=== PATIENT | male | born 1945 | race Caucasian/White ===

== ENCOUNTER 2016-12-18 09:09 | Inpatient (IN) ==
[~2016-12-18 09:09] MED LIST: TYLENOL ONE
[2016-12-18] MEDS ORDERED: LEVAQUIN 500 MG/D5W 500 MG/100 ML IVPB ONE ×2 (09:30)
[2016-12-18] MEDS ORDERED: NS 1,000 ML ONE ×6 (09:39→10:48)
[2016-12-18] MEDS ORDERED: LEVAQUIN 250 MG/D5W 250 MG/50 ML IVPB ONE (12:25)
[2016-12-18] MEDS ORDERED: VANCOMYCIN 1 GM/NS 1 GM/250 ML IVPB ONE (13:50)
[2016-12-18] MEDS: DUONEB (A & A) INH SCH ×3 (15:00→23:06)
[2016-12-18] MEDS ORDERED: NEO-SYNEPHRINE 50 MG in NS 250 ML IV SCH (15:00)
[2016-12-18] MEDS ORDERED: DUONEB (A & A) INH PRN (15:53)
[2016-12-18] MEDS ORDERED: ZOFRAN IV PRN (16:43)
[2016-12-18] MEDS: TYLENOL PO PRN (17:03)
[2016-12-18] MEDS: NEURONTIN PO SCH ×2 (17:03→22:30)
[2016-12-18] MEDS: ROBAXIN PO SCH ×2 (17:04→22:30)
[2016-12-18] MEDS: PROTONIX IV SCH (17:04)
[2016-12-18] MEDS: NORCO-7.5 PO SCH ×2 (17:04→22:30)
[2016-12-18] MEDS: NS 1,000 ML IV SCH (17:11)
[2016-12-18 17:35] LABS: URINE SOURCE CATH
[2016-12-18 17:37] LABS: MANUAL DIFF NEEDED? NO
--- NOTE | 2016-12-18 17:41 | Diag Imaging Result Document ---
PROCEDURE NAME: CHEST-2 VIEWS - 12/18/2016 PA AND LATERAL CHEST: COMPARISON: There are no previous studies available for comparison. FINDINGS: There is pleural thickening and/or loculated effusion on the right. There is increased interstitial and alveolar opacity in the right lower lobe and upper lobe. The heart size and pulmonary vascularity appear to be within normal limits. IMPRESSION: Chronic pleural changes on the right. Apparent pneumonia in the right upper and lower lobes. The chronicity is unclear without comparison studies.
[2016-12-18] MEDS: SODIUM CHLORIDE 0.9% INJ SCH (18:06)
[2016-12-18 18:50] LABS: CK INDEX 2.4 (0.0-2.5); CK-MB 9.32 ng/mL (0.0-5.0)
[2016-12-18 18:52] LABS: INR 1.43 (0.86-1.15); PROTIME 17.7 Seconds (12.1-15.5); PTT PL 30.3 Seconds (22.6-43.9)
[2016-12-18 18:55] LABS: HEMATOCRIT 30.6 % (42.0-52.0); HEMOGLOBIN 10.4 g/dL (14.0-18.0); MCH 35.6 PG (27-31); MCV 104.8 FL (81-99); PLT 80 X1000 (130-400); RBC 2.92 XMIL (4.7-6.1)
[2016-12-18 18:56] LABS: BASO% 0.1 % (0.0-0.8); IMM GRAN% 0.3 % (0.0-0.5); LYMPH# 1.57 X1000 (1.2-3.4); MONO# 0.26 X1000 (0.11-0.59); MONO% 2.2 % (1.7-9.3); NEUT% 84.4 % (42.2-75.2)
[2016-12-18 18:57] LABS: IMM GRAN# 0.04 X1000 (0.0-0.04); LYMPHS 15 % (21-51); MANUAL DIFF NEEDED? YES; MONO 1 % (1-9)
[2016-12-18 18:58] LABS: CHLORIDE 93 mmol/L (98-107); POTASSIUM 4.3 mmol/L (3.5-5.1); SODIUM 132 mmol/L (136-145)
[2016-12-18 18:59] LABS: AGAP 12; BUN 34 mg/dL (8-22); COSMO 272; TCO2 27 mmol/L (25-35)
[2016-12-18 19:00] LABS: ALBUMIN 3.7 g/dL (3.5-5.0); ALKALINE PHOSPHATASE 46 U/L (32-122); CALCIUM 8.9 mg/dL (8.8-10.2); TOTAL PROTEIN 7.2 g/dL (6.3-8.3)
[2016-12-18 19:01] LABS: GOT 40 U/L (10-34); GPT 21 U/L (10-44)
[2016-12-18 19:02] LABS: POTASSIUM 3.8 mmol/L (3.5-5.1); SODIUM 130 mmol/L (136-145)
[2016-12-18 19:03] LABS: AGAP 10; BUN 31 mg/dL (8-22); CHLORIDE 96 mmol/L (98-107); COSMO 269; TCO2 24 mmol/L (25-35)
[2016-12-18 19:04] LABS: ALBUMIN 3.3 g/dL (3.5-5.0); ALKALINE PHOSPHATASE 41 U/L (32-122); CALCIUM 8.2 mg/dL (8.8-10.2); GOT 37 U/L (10-34); GPT 20 U/L (10-44); MAGNESIUM 1.9 mg/dL (1.5-2.7); TOTAL PROTEIN 6.3 g/dL (6.3-8.3)
[2016-12-18 19:05] LABS: HEMATOCRIT 28.9 % (42.0-52.0); HEMOGLOBIN 9.8 g/dL (14.0-18.0); MCH 35.8 PG (27-31); MCV 105.5 FL (81-99); RBC 2.74 XMIL (4.7-6.1)
[2016-12-18 19:06] LABS: BASO% 0.1 % (0.0-0.8); IMM GRAN# 0.06 X1000 (0.0-0.04); IMM GRAN% 0.5 % (0.0-0.5); LYMPH# 1.04 X1000 (1.2-3.4); LYMPH% 8.5 % (20.5-51.1); MCHC 33.9 g/dL (33-37); MONO# 0.14 X1000 (0.11-0.59); MONO% 1.1 % (1.7-9.3); NEUT% 89.8 % (42.2-75.2); PLT 60 X1000 (130-400)
[2016-12-18 19:07] LABS: URINE EPITHELIAL CELLS <10 /HPF (<10); URINE WBC <10 /HPF (<10)
[2016-12-18 19:07] LABS: BE 5.8 mmoll (-3.0-3.0); BLOOD TYPE ARTERIAL; DRAW SITE R RADIAL; METHB 0.9 % (0.0-1.5); PCO2(98.6) 40 mmHg (35-45); PO2(98.6) 56 mmHg (60-100); SAMPLE BLOOD; SAO2 92.2 % (95.0-100.0); THB 10.8 g/dL (11.5-17.4); pH(98.6) 7.48 (7.35-7.45)
[2016-12-18 19:08] LABS: BILIRUBIN URINE 1+ (NEGATIVE); BLOOD URINE 2+ (NEGATIVE); CLARITY CLEAR (CLEAR); COLOR AMBER; GLUCOSE URINE NEGATIVE (NEGATIVE); SP GRAVITY URINE 1.015
[2016-12-18 19:09] LABS: LEUKOCYTES URINE TRACE (NEGATIVE); NITRITE URINE NEGATIVE (NEGATIVE); PROTEIN URINE 1+(30 mg/dL) mg/dL (NEGATIVE); URINE CULTURE PL NEEDED? YES; UROBILINOGEN URINE 4+(12 mg/dL)
[2016-12-18 19:09] LABS: O2(CT) 13.5 mL/dL (15.0-23.0)
[2016-12-18 21:26] LABS: AGAP 13; BUN 29 mg/dL (8-22); CALCIUM 7.9 mg/dL (8.8-10.2); CHLORIDE 96 mmol/L (98-107); COSMO 270; POTASSIUM 3.8 mmol/L (3.5-5.1); SODIUM 130 mmol/L (136-145); TCO2 21 mmol/L (25-35)
[2016-12-19] MEDS: NS 1,000 ML IV SCH ×3 (00:30→18:51)
[2016-12-19] MEDS: DUONEB (A & A) INH SCH ×6 (03:03→22:55)
[2016-12-19 04:51] LABS: MANUAL DIFF NEEDED? NO
[2016-12-19] MEDS: TYLENOL PO PRN (05:00)
[2016-12-19 05:52] LABS: AGAP 10; ALKALINE PHOSPHATASE 42 U/L (32-122); BUN 24 mg/dL (8-22); CALCIUM 7.6 mg/dL (8.8-10.2); CHLORIDE 99 mmol/L (98-107); COSMO 269; GOT 28 U/L (10-34); GPT 19 U/L (10-44); MAGNESIUM 1.9 mg/dL (1.5-2.7); POTASSIUM 3.8 mmol/L (3.5-5.1); SODIUM 132 mmol/L (136-145); TCO2 23 mmol/L (25-35); TOTAL PROTEIN 5.1 g/dL (6.3-8.3)
[2016-12-19] MEDS: NEURONTIN PO SCH ×3 (06:31→22:59)
[2016-12-19] MEDS: ROBAXIN PO SCH ×3 (06:32→23:00)
[2016-12-19] MEDS: NORCO-7.5 PO SCH ×3 (06:32→23:00)
[2016-12-19 07:02] LABS: EOS% 0.1 % (0.0-10.0); HEMATOCRIT 24.4 % (42.0-52.0); HEMOGLOBIN 8.2 g/dL (14.0-18.0); IMM GRAN% 0.1 % (0.0-0.5); LYMPH% 13.3 % (20.5-51.1); MCH 35.2 PG (27-31); MCHC 33.6 g/dL (33-37); MCV 104.7 FL (81-99); MONO% 2.7 % (1.7-9.3); NEUT% 83.8 % (42.2-75.2); PLT 62 X1000 (130-400); RBC 2.33 XMIL (4.7-6.1)
[2016-12-19 07:03] LABS: EOS# 0.01 X1000 (0.0-0.7); IMM GRAN# 0.01 X1000 (0.0-0.04); LYMPH# 1.17 X1000 (1.2-3.4); MONO# 0.24 X1000 (0.11-0.59)
[2016-12-19] MEDS ORDERED: VANCOMYCIN IV PER PHARMACY MISC SCH (07:15)
[2016-12-19] MEDS ORDERED: VANCOMYCIN 1,850 MG in NS 500 ML IV ONE (08:30)
[2016-12-19] MEDS: MIRAPEX PO SCH (09:32)
[2016-12-19] MEDS: FLOMAX PO SCH (09:32)
[2016-12-19 10:12] LABS: OCCULT BLOOD 1 NEGATIVE (NEGATIVE)
[2016-12-19 11:55] LABS: HEMATOCRIT 26.8 % (42.0-52.0); HEMOGLOBIN 8.9 g/dL (14.0-18.0); MCHC 33.2 g/dL (33-37); MCV 105.5 FL (81-99); PLT 58 X1000 (130-400); RBC 2.54 XMIL (4.7-6.1)
--- NOTE | 2016-12-19 12:04 | PROGRESS NOTE ---
DATE: 12/19/2016 SUBJECTIVE: Patient feels tremendously better this morning. He still had a fever of 102.9 but otherwise notes that his shortness of breath, cough, and congestion are all much better. PHYSICAL EXAMINATION: Vital Signs: Temperature 98 degrees, T-max 102.9 degrees. Pulse 75, respiratory rate 15, BP 120/54. General: Patient is well developed, well nourished. He is currently in no respiratory distress. He is awake, alert, and he is oriented. Neck: Supple. CV: Regular rate. Chest: Relatively clear. Abdomen: Soft. Extremities: Moves all extremities. Neurologic: No focal changes. Skin: Warm and dry. No rashes. ASSESSMENT: 1. Sepsis, improving. 2. Fever. Patient continues to have fever. 3. Pneumonia. Continue Levaquin and vancomycin. 4. Leukocytosis, improved. 5. Anemia. Hemoglobin and hematocrit are 8 and 24. Likely of chronic disease as he has no current episodes of bleeding. However, we will continue to follow. 6. Hyponatremia, improving. 7. Acute renal failure, improving. Serum creatinine was 2.5 on admission, currently 1.6. 8. Hyperbilirubinemia, also improving. PLAN: We will continue the patient in the ICU this morning. Hopefully, can move out to the floor this afternoon. We will discontinue his Freire. We will begin changing his medications. Hopefully home in the next 2-3 days. cc: Yan Nunez MD
[2016-12-19 12:08] LABS: AGAP 9; BUN 20 mg/dL (8-22); CALCIUM 8.1 mg/dL (8.8-10.2); CHLORIDE 99 mmol/L (98-107); COSMO 266; POTASSIUM 3.4 mmol/L (3.5-5.1); SODIUM 131 mmol/L (136-145); TCO2 24 mmol/L (25-35)
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
[2016-12-19] MEDS: MOTRIN PO PRN (14:52)
[2016-12-19] MEDS: PROTONIX IV SCH (18:51)
[2016-12-19] MEDS: SODIUM CHLORIDE 0.9% INJ SCH (18:51)
[2016-12-19] MEDS: DESYREL PO SCH (23:00)
[2016-12-19] MEDS ORDERED: AYR NASAL SPRAY NAS PRN (23:18)
[2016-12-20] MEDS: NS 1,000 ML IV SCH ×2 (01:47→04:00)
[2016-12-20] MEDS: DUONEB (A & A) INH SCH ×6 (03:10→23:56)
[2016-12-20 05:39] LABS: HEMATOCRIT 23.5 % (42.0-52.0); HEMOGLOBIN 7.7 g/dL (14.0-18.0); RBC 2.25 XMIL (4.7-6.1)
[2016-12-20 05:40] LABS: MCH 31.2 PG (27-31); MCHC 32.8 g/dL (33-37); MCV 104.4 FL (81-99); PLT 60 X1000 (130-400)
[2016-12-20 06:09] LABS: AGAP 9; ALBUMIN 2.9 g/dL (3.5-5.0); ALKALINE PHOSPHATASE 45 U/L (32-122); BUN 20 mg/dL (8-22); CHLORIDE 104 mmol/L (98-107); COSMO 275; GOT 22 U/L (10-34); GPT 19 U/L (10-44); POTASSIUM 3.6 mmol/L (3.5-5.1); SODIUM 136 mmol/L (136-145); TCO2 23 mmol/L (25-35); TOTAL PROTEIN 5.1 g/dL (6.3-8.3)
[2016-12-20] MEDS: NEURONTIN PO SCH ×3 (06:35→23:00)
[2016-12-20] MEDS: NORCO-7.5 PO SCH (06:35)
[2016-12-20] MEDS: ROBAXIN PO SCH (06:36)
[2016-12-20] MEDS: MIRAPEX PO SCH (08:24)
[2016-12-20] MEDS: FLOMAX PO SCH (08:24)
[2016-12-20] MEDS ORDERED: NS 1,000 ML IV SCH (08:27)
--- NOTE | 2016-12-20 08:40 | PROGRESS NOTE ---
DATE: 12/20/2016 SUBJECTIVE: The patient notes that he is feeling much better today. He denies any cough, congestion. Denies any chest pain or palpitations. Denies any fevers or chills. PHYSICAL EXAMINATION: Vital Signs: Temperature 98, pulse 84, respiratory rate 10, blood pressure 143/48. General: Patient is awake, alert. He is in no distress. He is pleasant to talk with. Speech is regular. Neck: Supple. Cardiovascular: Regular rate. Chest: Relatively clear. Abdomen: Soft. Extremities: Moves all extremities. Neurologic: No changes. ASSESSMENT: 1. Gram-positive cocci bacteremia. 2. Sepsis, resolved. 3. Right upper lobe pneumonia, improving. 4. Acute hypoxic respiratory failure, resolved. 5. Acute renal failure, resolved. 6. Anemia of chronic disease, stable. 7. Leukocytosis, resolved. 8. Hyponatremia, resolved. 9. Hypocalcemia. 10. Mild protein calorie malnutrition. PLAN: We will transfer the patient to the floor. We will continue vancomycin and Levaquin until his blood cultures result. We will begin restarting his home medications. cc: Yan Nunez MD
[2016-12-20] MEDS ORDERED: MIRAPEX PO SCH (09:00)
[2016-12-20] MEDS ORDERED: ADVAIR 250/50 DISKUS INH SCH (09:00)
[2016-12-20] MEDS: PRILOSEC PO SCH (09:55)
[2016-12-20] MEDS ORDERED: LEVAQUIN 750 MG/D5W 750 MG/150 ML IVPB IV SCH (12:00)
[2016-12-20 13:02] LABS: BE 0.7 mmoll (-3.0-3.0); BLOOD TYPE ARTERIAL; METHB 1.2 % (0.0-1.5); O2(CT) 11.6 mL/dL (15.0-23.0); PCO2(98.6) 40 mmHg (35-45); PO2(98.6) 55 mmHg (60-100); SAMPLE BLOOD; THB 9.3 g/dL (11.5-17.4); pH(98.6) 7.41 (7.35-7.45)
[2016-12-20 13:12] LABS: MODALITY CANNULA
[2016-12-20 13:13] LABS: ALLEN TEST YES; DRAW SITE R RADIAL
[2016-12-20] MEDS ORDERED: NEURONTIN PO SCH (14:00)
[2016-12-20] MEDS ORDERED: MOTRIN ONE (14:26)
[2016-12-20] MEDS: MOTRIN PO PRN (14:28)
[2016-12-20] MEDS ORDERED: LASIX ONE (14:48)
[2016-12-20] MEDS ORDERED: LASIX IV ONE (14:55)
[2016-12-20] MEDS ORDERED: XOPENEX NEB INH ONE (14:58)
[2016-12-20] MEDS ORDERED: MORPHINE IV ONE (15:20)
--- NOTE | 2016-12-20 17:55 | Diag Imaging Result Document ---
PROCEDURE NAME: CHEST-1 VIEW - 12/20/2016 CHEST SINGLE-VIEW: COMPARISON: 12/18/2016. FINDINGS: There are infiltrates throughout the right lung which persist. There is also a small right effusion. Tiny left effusion. The heart is not enlarged. Mild vascular distention. IMPRESSION: Overall mild worsening.
--- NOTE | 2016-12-20 18:00 | Diag Imaging Result Document ---
PROCEDURE NAME: HEAD W/O CONTRAST - 12/20/2016 STUDY: CT brain without. COMPARISON: Compared to 09/17/2015. No parenchymal hemorrhage. No epidural or subdural hematoma. No subarachnoid hemorrhage. No mass identified on this noncontrast exam. No hydrocephalus. No sinus opacification. Mild atrophy. IMPRESSION: 1. No hemorrhage. 2. Mild atrophy.
[2016-12-20] MEDS ORDERED: VANCOMYCIN 1,500 MG in NS 250 ML IV SCH (20:30)
[2016-12-20] MEDS ORDERED: DESYREL PO SCH (21:00)
[2016-12-20] MEDS ORDERED: FLOMAX PO SCH (21:00)
[2016-12-20] MEDS: DESYREL PO SCH (21:06)
[2016-12-20] MEDS: SODIUM CHLORIDE 0.9% INJ SCH (23:55)
[2016-12-20] MEDS: SPIRIVA INH SCH (23:56)
[2016-12-21] MEDS: DUONEB (A & A) INH SCH ×6 (03:33→22:32)
[2016-12-21] MEDS: TYLENOL PO PRN ×2 (05:50→20:55)
[2016-12-21] MEDS: NEURONTIN PO SCH ×3 (06:00→22:07)
[2016-12-21] MEDS: PRILOSEC PO SCH (06:01)
[2016-12-21 06:39] LABS: AGAP 12; ALBUMIN 2.8 g/dL (3.5-5.0); ALKALINE PHOSPHATASE 59 U/L (32-122); BUN 16 mg/dL (8-22); CALCIUM 8.3 mg/dL (8.8-10.2); CHLORIDE 106 mmol/L (98-107); COSMO 287; GOT 23 U/L (10-34); GPT 22 U/L (10-44); POTASSIUM 3.3 mmol/L (3.5-5.1); SODIUM 143 mmol/L (136-145); TCO2 26 mmol/L (25-35); TOTAL PROTEIN 5.2 g/dL (6.3-8.3)
[2016-12-21 07:17] LABS: HEMATOCRIT 25.5 % (42.0-52.0); HEMOGLOBIN 8.6 g/dL (14.0-18.0); MCH 33.7 PG (27-31); MCHC 33.7 g/dL (33-37); PLT 69 X1000 (130-400); RBC 2.55 XMIL (4.7-6.1)
[2016-12-21] MEDS: SPIRIVA INH SCH (08:45)
[2016-12-21] MEDS: ADVAIR 250/50 DISKUS INH SCH ×2 (08:45→20:23)
--- NOTE | 2016-12-21 09:03 | PROGRESS NOTE ---
DATE: 12/21/2016 SUBJECTIVE: The patient notes that he is feeling much better this morning. He is awake, alert. OBJECTIVE: Vital Signs: Reviewed. Temperature 97 degrees, pulse 79, respiratory rate 12, BP 93/51. General: Patient well developed, well nourished. Currently in no real respiratory distress. He is awake, alert. Neck: Supple. CV: Regular rate. Chest: Relatively clear. Abdomen: Soft. Extremities: Moves all extremities. DIAGNOSTIC DATA: CBC and CMP essentially unchanged. Hemoglobin and hematocrit has remained 8 and 25 for the last couple of days. ASSESSMENT: 1. Sepsis, secondary to strep pneumoniae, improving. 2. Hypokalemia, resolved. 3. Moderate protein calorie malnutrition. 4. Anemia of chronic disease. 5. Chronic obstructive pulmonary disease with exacerbation. 6. Right upper and lower lobe pneumonia, improved secondary to history of pneumonia. 7. Acute renal failure, resolved. Serum creatinine 2.5 admit, currently 1.1. 8. Hyperbilirubinemia of undetermined significance. We will continue to follow. PLAN: We will transfer patient to the floor. His strep pneumoniae is highly sensitive to Levaquin, penicillin and doxycycline. We will ask Dr. Aguilar with infectious disease preferred length of antibiotics and preferred route. The patient denies any surgical implantation of hardware. Hopefully home in 1-2 days. cc: Yan Nunez MD
[2016-12-21] MEDS: FLOMAX PO SCH (10:16)
[2016-12-21] MEDS: FLONASE NAS SCH ×2 (10:17→20:55)
[2016-12-21] MEDS ORDERED: LACTULOSE PO ONE (11:19)
[2016-12-21] MEDS ORDERED: NS 500 ML ONE (12:23)
[2016-12-21] MEDS: ROCEPHIN 2 GM/NS 2 GM/50 ML IVPB IV SCH (12:33)
[2016-12-21] MEDS ORDERED: LEVAQUIN 750 MG/D5W 750 MG/150 ML IVPB IV SCH (14:00)
[2016-12-21] MEDS: NORCO-7.5 PO PRN (15:50)
[2016-12-21] MEDS ORDERED: ATIVAN IV PRN (20:36)
[2016-12-21] MEDS: DESYREL PO SCH (20:55)
[2016-12-22] MEDS: DUONEB (A & A) INH SCH ×5 (03:29→19:44)
[2016-12-22] MEDS: PRILOSEC PO SCH (06:20)
[2016-12-22] MEDS: NEURONTIN PO SCH ×3 (06:20→22:28)
[2016-12-22] MEDS: ADVAIR 250/50 DISKUS INH SCH ×2 (07:40→19:44)
[2016-12-22] MEDS: SPIRIVA INH SCH (07:40)
--- NOTE | 2016-12-22 08:00 | Diag Imaging Result Document ---
PROCEDURE NAME: ABDOMEN FLAT/UPRIGHT - 12/21/2016 FLAT AND UPRIGHT ABDOMEN: FINDINGS: There is a moderately large amount of stool throughout the colon. There is no evidence of gastric or small bowel dilatation and no evidence of organomegaly or mass is present. IMPRESSION: Constipation.
--- NOTE | 2016-12-22 08:05 | Diag Imaging Result Document ---
PROCEDURE NAME: CHEST-2 VIEWS - 12/21/2016 TWO VIEWS OF THE CHEST: FINDINGS: There are bilateral pleural effusions, some of which may be loculated on the right. There are right pleural calcifications. There is volume loss on the right and the entire right lung is somewhat hyperdense particularly the lower lobe. This has not changed appreciably since 12/20/2016 but is considerably worse than on 09/17/2015. The pleural changes on the right were present at that time and but there has been increased volume loss and generalized pulmonary parenchymal opacity since then. The pleural effusion on the left was not present at that time. There has been worsening with regard to the pulmonary opacities and left pleural effusion since 12/18/2016. IMPRESSION: Chronic pleural changes on the right with increasing pleural effusions bilaterally. Pulmonary edema and/or pneumonia throughout the right lung.
[2016-12-22] MEDS: FLONASE NAS SCH ×2 (08:10→21:42)
[2016-12-22] MEDS: LEVAQUIN PO SCH (08:23)
[2016-12-22] MEDS: FLOMAX PO SCH (08:23)
[2016-12-22] MEDS ORDERED: MIRALAX PO SCH (09:00)
[2016-12-22] MEDS: ROCEPHIN 2 GM/NS 2 GM/50 ML IVPB IV SCH (11:34)
[2016-12-22] MEDS: LACTULOSE PO SCH ×2 (11:35→22:07)
[2016-12-22] MEDS ORDERED: DULCOLAX PR SCH (12:00)
--- NOTE | 2016-12-22 12:32 | PROGRESS NOTE ---
DATE: 12/22/2016 SUBJECTIVE: The patient states he is feeling better today. He is awake and alert. He complains of needing to have a bowel movement. OBJECTIVE: Vital Signs: Blood pressure is 125/60 with a heart rate of 92, respirations are 18, temperature is 98.7 degrees oral with oxygen saturations of 95-98% on a Ventimask at 50%. Of note, O2 saturation did drop to 79% on room air. He was then placed on 5 L nasal cannula. Saturations have been 96-98%. Cardiovascular: Regular rate and rhythm. S1 and S2 appreciated. Pulmonary: Breath sounds are clear. Chest rises and falls symmetrically with respiration. No increased work of breathing noted. Gastrointestinal: Abdomen is soft, nontender with bowel sounds in all 4 quadrants. Musculoskeletal: Good range of motion of joints. Extremities: No clubbing, cyanosis, or edema. Calves are nontender. Pulses are palpable x4. DIAGNOSTIC DATA: Abdominal x-ray revealed constipation. Chest x-ray revealed pulmonary edema or pneumonia throughout the right lung. ASSESSMENT: 1. Sepsis secondary to strep pneumoniae pneumonia, improving. 2. Hypokalemia resolved. 3. Moderate protein calorie malnutrition. 4. Anemia of chronic disease. 5. Chronic obstructive pulmonary disease with exacerbation. 6. Right upper and right lower lobe pneumonia. 7. Acute renal failure. Improved with creatinine 1.1 today. 8. Hyperbilirubinemia of undetermined significance. PLAN: Will continue with the patient's current regimen. We did speak with Dr. Aguilar, Infectious Disease who recommended that the patient have antibiotic coverage of Rocephin 2 g every 24 hours. We will also continue with his Levaquin daily. We will increase his pulmonary toilet adding CPT incentive spirometer. We will continue to trend labs daily. We did give lactulose on the and we will repeat lactulose today adding Dulcolax suppositories. During the night the patient's O2 sats dropped to 75%. He was placed on a Ventimask during the night. This morning O2 sats were rechecked and his saturation did drop again once again to 78- 79%. Once he was placed on 5 L nasal cannula his sats did increase to 95-96%. We will continue with oxygen supplementation and increase pulmonary toilet as stated above. The patient has had a CPAP machine for quite some time. It was noted when he was in ICU his sats would drop when the CPAP was in use. We have called the company and requested they come and check his machine. Dictated by BENIGNO Trevino for Yan Nunez MD cc: BENIGNO Trevino MD
[2016-12-22] MEDS: TYLENOL PO PRN (13:28)
[2016-12-22] MEDS ORDERED: MISC. PHARMACY COMMUNICATION SCH (15:45)
[2016-12-22] MEDS: NON-FORMULARY BULK MED PR ONE (18:00)
[2016-12-22] MEDS: MAXIPIME 2 GM/NS 2 GM/100 ML IVPB IV SCH (19:53)
[2016-12-22] MEDS: NORCO-7.5 PO PRN (20:16)
[2016-12-22] MEDS: DESYREL PO SCH (21:41)
--- NOTE | 2016-12-22 22:46 | CONSULTATION ---
DATE OF CONSULTATION: 12/22/2016 CONCLUSION: The patient was admitted to the hospital with severe pneumonia that involves most of the right lung. His blood cultures are growing Streptococcus pneumoniae, therefore, certainly part of the patient's pneumonia if not all is due to Streptococcus pneumoniae. Patient says he does not feel like he is getting any better. It may just be that it is going to take longer because he has a history of COPD and because he has a large pneumonia. On the other hand it is noted that the patient's sputum is growing a gram-negative lorenzo and thus he may have actually a mixed infection with pneumococcus and the gram-negative lorenzo. In addition, the patient may have an immunoglobulin deficiency. RECOMMENDATIONS: I agree with treating the patient with Levaquin. I have discontinued Rocephin and placed the patient on cefepime to provide coverage both for the pneumococcus and whatever the gram-negative lorenzo in the patient's sputum turns out to be off. Also, I have ordered immunoglobulin levels and if the IgG is low I think the patient should have an infusion of gammaglobulin. DISCUSSION: The patient told me that for a week he has had dyspnea and cough. He is not really bringing up any sputum. He does not think he has had any fever. He has been in the hospital for approximately 4 days. He says he really does not feel any better and he is not breathing any better. LABORATORY STUDIES: Thus far his white count is 6300, hemoglobin is 8.6 and platelet count is 69,000. Creatinine is 1.1. GFR is greater than 60. A swab for influenza is negative. The patient's blood culture grew pneumococcus. His sputum is growing a gram-negative lorenzo. Chest x-ray shows an enlarging right lung infiltrate and also bilateral pleural effusions. CT scan of the head shows atrophy. CT scan of the sinuses shows no opacity. PAST MEDICAL HISTORY AND REVIEW OF SYSTEMS: Eyes and ears: He denies difficulty hearing or seeing. Neck: No stiffness. Respiratory: See present illness. Gastrointestinal: No nausea, vomiting, or diarrhea. Genitourinary: No dysuria or flank pain. Endocrine: Patient does not have diabetes or thyroid disease. Bones, joints, muscles: No joint pain or myalgias. Neurologic: No motor or sensory loss. No seizures. Integumentary: No rash. The remainder the patient's review of systems was completed and was negative. PREVIOUS HOSPITALIZATIONS AND OPERATIONS: He has had back surgery and surgery on his clavicle. MEDICAL DISEASES: Positive for COPD. INFECTIOUS DISEASE HISTORY: Positive for pneumonia. FAMILY HISTORY: Positive for stroke. SOCIAL HISTORY: [place] He is . He has a dog as a pet. He does not smoke cigarettes, drink alcoholic beverages or abuse drugs. ALLERGIES: His chart says there are no known drug allergies. HOME MEDICATIONS: MiraLAX, ProAir, omeprazole, gabapentin, Pramipexole, trazodone, Robaxin, Spiriva and hydrocodone. PHYSICAL EXAMINATION: Vital Signs: Temperature 99.2 degrees, pulse 84, respirations 22, blood pressure 111/56. The patient weighs 163 pounds. General: This is a somewhat ill-appearing, elderly male. He is in no acute distress. Head, eyes, ears, nose, and throat: He can hear my spoken words. He can see near objects. He is wearing dentures. Sinuses are not tender. There is no drainage from the nose or ears. Neck: No meningismus. Thorax: Increased AP diameter. Lungs: There were diminished breath sounds on the right side. I heard a few rales on the right side, the left side was clear. Cardiovascular: Heart rate was regular. There was leg edema. Peripheral pulses are palpable. Abdomen: Soft and nontender. Neurologic: Patient is alert. He can move his extremities. He had good strength in his arms and legs. His sensation was intact to touch. His memory as regarding his medical history is intact. There was no tremor. Integument: No rash noted. Thank you for the consultation. cc: Teddy Aguilar MD
[2016-12-23] MEDS: DUONEB (A & A) INH SCH ×5 (00:01→15:58)
[2016-12-23] MEDS: NORCO-7.5 PO PRN ×3 (05:52→22:01)
[2016-12-23] MEDS: MAXIPIME 2 GM/NS 2 GM/100 ML IVPB IV SCH (06:39)
[2016-12-23] MEDS: NEURONTIN PO SCH ×3 (06:39→22:01)
[2016-12-23] MEDS: PRILOSEC PO SCH (06:39)
[2016-12-23] MEDS: SPIRIVA INH SCH (08:13)
[2016-12-23] MEDS: ADVAIR 250/50 DISKUS INH SCH (08:13)
--- NOTE | 2016-12-23 08:17 | PROGRESS NOTE ---
DATE: 12/23/2016 SUBJECTIVE: The patient notes he is feeling a little bit better. He is a little bit stronger, but he still gets very short of breath coughing and dyspnea on exertion. PHYSICAL EXAM: Temperature 100, pulse 87, respiratory rate 18, BP 118/58. Saturating 94% on 4 L.General: The patient is awake, alert. He is sitting up in the chair. He is wearing a Ventimask watching television. Neck: Supple. CV: Regular rate. Chest: Decreased breath sounds but equal bilaterally. No wheezing. No crackles. Abdomen: Soft. Extremities: Moves all extremities. Neurologic: No changes. LABORATORY DATA: Sputum growing gram-negative rods. Blood culture growing strep pneumoniae. CBC, CMP unchanged otherwise. ASSESSMENT: 1. Moderate protein calorie malnutrition. 2. Mild hypokalemia. 3. Gram-negative rods in sputum and antibiotics have been changed. He has added cefepime 2 g q. 12. 4. Sepsis, improved. 5. Bacteremia with Strep pneumonia. Continue Levaquin. 6. Nasal congestion, we will add Flonase. 7. Hypoxemia. Continue pulmonary toilet. Continue to ambulate. Hopefully this will continued to improve. Addendum: Patient will be transferred to [facility] to the service of his Primary - Dr. May. Although the stated to Lalo that she has been asking, at no point, morning or night have I seen the and the has never asked. The staff has never told me that she was asking either. He is clinically slowly improving cc: Yan Nunez MD [facility] MED[facility] CENTERLibertad
[2016-12-23] MEDS: LEVAQUIN PO SCH (09:10)
[2016-12-23] MEDS: FLOMAX PO SCH (09:10)
[2016-12-23] MEDS: FLONASE NAS SCH (09:11)
[2016-12-23] MEDS ORDERED: BLISTEX MEDICATED BERRY LIP BALM TOP PRN ×2 (11:33→21:45)
[2016-12-23] MEDS ORDERED: TYLENOL PO PRN (21:39)
[2016-12-23] MEDS ORDERED: MOTRIN PO PRN (21:41)
[2016-12-23] MEDS ORDERED: ATIVAN IV PRN (21:49)
[2016-12-23] MEDS ORDERED: ROCEPHIN 2 GM/NS 2 GM/50 ML IVPB IV SCH (22:00)
[2016-12-23] MEDS ORDERED: DULCOLAX PR SCH (22:00)
[2016-12-23] MEDS: PROTONIX IV SCH (22:01)
[2016-12-23] MEDS: SOLU-MEDROL IV SCH (22:01)
[2016-12-23] MEDS: SODIUM CHLORIDE 0.9% INJ SCH (22:01)
[2016-12-23] MEDS: LOVENOX SUBQ SCH (22:01)
[2016-12-23] MEDS: DESYREL PO SCH (22:02)
[2016-12-24 04:12] LABS: ALLEN TEST YES; BLOOD TYPE ARTERIAL; DRAW SITE R RADIAL; METHB 1.4 % (0.0-1.5); O2(CT) 16.3 mL/dL (15.0-23.0); PO2(98.6) 86 mmHg (60-100); SAMPLE BLOOD; SAO2 97.2 % (95.0-100.0); THB 12.4 g/dL (11.5-17.4); pH(98.6) 7.38 (7.35-7.45)
[2016-12-24 04:14] LABS: MODALITY BI PAP; PCO2(98.6) 53 mmHg (35-45)
[2016-12-24 06:45] LABS: BASO% 0.3 % (0.0-0.8); HEMATOCRIT 26.9 % (42.0-52.0); HEMOGLOBIN 8.9 g/dL (14.0-18.0); LYMPH# 0.63 X1000 (1.2-3.4); LYMPH% 20.7 % (20.5-51.1); MANUAL DIFF NEEDED? YES; MCH 33.8 PG (27-31); MCHC 33.1 g/dL (33-37); MCV 102.3 FL (81-99); MONO# 0.04 X1000 (0.11-0.59); MONO% 1.3 % (1.7-9.3); MPV 11.9 FL (7.4-10.4); NEUT% 77.7 % (42.2-75.2); PLT 113 X1000 (130-400); RBC 2.63 XMIL (4.7-6.1)
[2016-12-24 06:54] LABS: AGAP 8; BUN 17 mg/dL (8-22); CALCIUM 8.4 mg/dL (8.8-10.2); CHLORIDE 98 mmol/L (98-107); COSMO 282; POTASSIUM 4.4 mmol/L (3.5-5.1); SODIUM 139 mmol/L (136-145); TCO2 33 mmol/L (25-35)
[2016-12-24 07:01] LABS: BANDS 6 % (0-1); LYMPHS 24 % (21-51); MONO 2 % (1-9)
[2016-12-24] MEDS ORDERED: ZOSYN 3.375 GM/NS 3.375 GM/50 ML IVPB IV SCH (08:15)
[2016-12-24] MEDS ORDERED: ATIVAN IV PRN (08:16)
[2016-12-24] MEDS ORDERED: LASIX IV SCH (08:30)
--- NOTE | 2016-12-24 08:47 | Diag Imaging Result Document ---
PROCEDURE NAME: CHEST-PORTABLE - 12/24/2016 SINGLE FRONTAL RADIOGRAPH OF THE CHEST: COMPARISON: 12/21/2016. FINDINGS: Bilateral effusions, largest on the right, are stable. Diffuse infiltrate throughout the right lung suggesting edema and/or pneumonia is [id number] improved, especially at the right lung base. No new consolidation is identified. Cardiac silhouette is stable. IMPRESSION: [id number] improved infiltrate throughout the right lung.
[2016-12-24] MEDS ORDERED: LEVAQUIN 500 MG/D5W 500 MG/100 ML IVPB IV SCH (09:00)
[2016-12-24] MEDS: SPIRIVA INH SCH (09:06)
[2016-12-24] MEDS: DUONEB (A & A) INH PRN ×3 (09:07→22:54)
[2016-12-24] MEDS: ADVAIR 250/50 DISKUS INH SCH ×2 (09:07→22:54)
[2016-12-24] MEDS: FLOMAX PO SCH (09:47)
[2016-12-24] MEDS: SOLU-MEDROL IV SCH ×2 (09:47→22:28)
[2016-12-24] MEDS: FLONASE NAS SCH ×2 (09:47→22:26)
[2016-12-24] MEDS: NORCO-7.5 PO PRN ×2 (10:00→22:32)
[2016-12-24] MEDS: NEURONTIN PO SCH ×2 (10:01→16:33)
--- NOTE | 2016-12-24 12:29 | PROGRESS NOTE ---
DATE: 12/24/2016 PRESENT ILLNESS: The patient has pneumonia. He had along with that a pneumococcal bacteremia. Undoubtedly, the pneumonia was caused by pneumococcus, as well. Despite being treated thoroughly for the pneumococcus, the patient was just not getting better, and a new organism, namely alcaligenes, was isolated from his sputum. MEDICATIONS: Currently, the patient is receiving Levaquin. PHYSICAL EXAMINATION: Vital signs; Temperature is 97.7, pulse 92, respirations 16, blood pressure 121/68. General: This is a somewhat ill-appearing elderly male who is in no acute distress. Lungs: Clear to auscultation. Cardiovascular: Regular heart rate. Abdomen: Soft without masses or tenderness. Neurologic: The patient is alert. He can move his extremities. LABORATORY AND X-RAY: Chest x-ray shows there is some improvement in the right lung infiltrate. The patient's CBC shows a white count of 3050, hemoglobin 8.9, and platelet count of 113,000. The patient's blood gases show a pH of 7.38, a pO2 of 86, and a pCO2 of 53. Creatinine is 1.0. GFR is greater than 60. The patient's IgA and IgG levels are normal. Specifically , the IgA level was 800. ASSESSMENT AND PLAN: The patient has pneumococcal bacteremia and pneumonia. Also, there appears to be another organism, namely alcaligenes, which is causing the patient's pneumonia, as well. I agree with placing the patient on Zosyn. I have increased the dose to 4.5 g IV q.6 h. I discontinued Levaquin. COMORBIDITIES: The patient's comorbidities are he has COPD, and he is elderly. cc: MD Juan Guerra MD MTDD
[2016-12-24] MEDS: ZOSYN 4.5 GM/NS 4.5 GM/100 ML IVPB IV SCH ×3 (15:28→22:27)
--- NOTE | 2016-12-24 18:48 | PROGRESS NOTE ---
DATE: 12/24/2016 SUBJECTIVE: He is a 71-year-old male patient of mine, who was admitted in the ICU at [facility] for pneumococcal sepsis with positive blood cultures and also gram-negative rods. The patient was treated appropriately there. At the request of the family, the patient has been transferred to [facility]. He was admitted on 12/18/2016. Date of transfer was on 12/23/2016. Patient was examined at bedside. Interval history was reviewed and he had a known history of COPD with right bronchiectasis. He was placed on IV Rocephin and Levaquin. He is also using BiPAP. Intermittent confusion. He also was found to have thrombocytopenia and anemia. Electrolytes were replaced. Currently he is stable on the floor. REVIEW OF SYSTEMS: HEENT: Intermittent confusion. No headache. No vision problem. Neck: No goiter. No lymphadenopathy. Cardiopulmonary: No chest pain. No shortness of breath, wheezing, productive cough. GI: No nausea, vomiting, abdominal pain. No altered bowel habits. No bleeding per rectum. : No history of hesitancy, frequency. No swelling of feet. Skin: Recently he was treated with right olecranon bursitis. Subsequently I and D was done. Neurologic: No focal symptoms or weakness or seizures. PAST MEDICAL HISTORY: Reviewed. BPH, COPD, gastroesophageal reflux disease, hypogonadism, anxiety/depression, chronic back pain and COPD with bronchiectasis. PAST SURGICAL HISTORY: Right foot repair, tonsillectomy, I and D of right elbow abscess. I did review the allergies, medications. Social history, family history as per the HPI from [place]. PHYSICAL EXAMINATION: Vital Signs: Afebrile, slightly tachycardic. Hemodynamics stable on 4 L oxygen 96%. Appearance: Not in respiratory distress. HEENT: Atraumatic, normocephalic. Pupils equal, react to light. TMs are normal. Nose and throat congested on nasal cannula. Neck: Supple. No lymphadenopathy. No goiter. Chest: Is wheezing, crackles on the right side. Heart: Sounds are regular. No murmurs. Abdomen: Belly is soft, nontender. Good bowel sounds. No peripheral edema or cyanosis. Neurological: No obvious deficits. INVESTIGATIONS: CBC: White cell count 6.3, hematocrit 25, MCV is 100. Platelets 69,000. PT 17. INR 1.4. ABG, pH is 7.41, pCO2 40, PO2 55. SMA 7: Sodium 143, potassium 3.3, chloride 106, BUN 16, creatinine 1.1, glucose 106, calcium 8.3, total bilirubin 1.6. LFTs were normal. IgG levels are normal. Influenza A and B were negative. Stool occult was negative. MICROBIOLOGY: Sputum cultures gram-negative rods pending, blood cultures are positive for strep pneumonia and urine was negative. Chest x-ray right lower lobe infiltrate. ASSESSMENT AND PLAN: 71-year-old white gentleman, admitted to the hospital with pneumococcal sepsis, getting better, transferred at the request of the family. 1. Continue IV antibiotics with Rocephin and Levaquin. 2. Sleep apnea on CPAP machine. 3. BPH, on Flomax. 4. DVT prophylaxis with Lovenox. 5. Gastrointestinal prophylaxis with IV Protonix. 6. COPD. Continue on bronchodilators and Spiriva. 7. We will add IV steroids and follow up on C and S. 8. Anemia, macrocytosis. Stool is negative. Discussed with the patient and his and currently stable. We will also ask Dr. Aguilar to be followed in the morning. Documentation time is 45 minutes. cc: Juan May MD
--- NOTE | 2016-12-24 18:59 | PROGRESS NOTE ---
DATE: 12/24/2016 SUBJECTIVE: Interval history reviewed. The patient was just coming off the BiPAP machine. Denies any complaints. Still has a productive cough and decreased shortness of breath and wheezing. REVIEW OF SYSTEMS: None reported. Acute mental confusion is improving. OBJECTIVE: Vital Signs: Temperature is 98 degrees, respirations 18, blood pressure 110/74, nasal cannula on oxygen. Input and output were positive 340. HEENT: Not in respiratory distress. Neck: Supple. No lymphadenopathy. Chest: Scattered wheezing. Heart: Sounds are regular. Abdomen: Belly is soft, nontender. Good bowel sounds. Extremities: No peripheral edema, cyanosis. Neurologic: No obvious neurological deficits. INVESTIGATIONS: CBC: White cell count 3, hematocrit 26, platelets 113,000. ABG showed pH is 7.38, pCO2 of 53, PO2 of 86 on BiPAP. SMA-7: Sodium 139, potassium 4.4, chloride 99, BUN 17, creatinine 1.6, glucose 150, calcium 8.4. Stool occult is negative. Urine cultures were negative. Sputum cultures positive for Alcaligenes xylosoxidans. ASSESSMENT AND PLAN: 1. Right lower lobe pneumonia with underlying chronic obstructive pulmonary disease, bronchiectasis, with a pneumococcal sepsis. Sputum cultures, gram-negative rods. Discussed with Dr. Aguilar. Change the Rocephin to Zosyn 3.375 every 6 hours. Add intravenous steroids. 2. Thrombocytopenia, improving; macrocytosis, heme-negative. He is hypoxic. Transfuse 1 unit of packed red blood cells. 3. Continue present medical therapy. We will follow up and reevaluate chest x- ray and laboratory workup on Tuesday and Dr. Garcia is going to follow up. Discussed with the patient. TIME SPENT: The documentation time was 25 minutes. cc: Juan May MD [facility]
[2016-12-24] MEDS ORDERED: MYCOSTATIN SUSP PO ONE (21:57)
[2016-12-24] MEDS: PROTONIX IV SCH (22:28)
[2016-12-24] MEDS: LOVENOX SUBQ SCH (22:28)
[2016-12-24] MEDS: SODIUM CHLORIDE 0.9% INJ SCH (22:28)
[2016-12-24] MEDS: DESYREL PO SCH (22:28)
[2016-12-25] MEDS: NEURONTIN PO SCH ×3 (01:17→17:49)
[2016-12-25] MEDS: ZOSYN 4.5 GM/NS 4.5 GM/100 ML IVPB IV SCH ×4 (05:59→22:29)
[2016-12-25] MEDS: ADVAIR 250/50 DISKUS INH SCH (08:48)
[2016-12-25] MEDS: SPIRIVA INH SCH (08:49)
[2016-12-25] MEDS: SOLU-MEDROL IV SCH ×2 (09:08→22:29)
[2016-12-25] MEDS: FLOMAX PO SCH (09:09)
[2016-12-25] MEDS: FLONASE NAS SCH (09:10)
[2016-12-25] MEDS: NORCO-7.5 PO PRN ×2 (09:16→17:48)
--- NOTE | 2016-12-25 12:19 | PROGRESS NOTE ---
DATE: 12/25/2016 OBJECTIVE: Patient complains of some tongue irritation. Overall feeling better. He is able to get up and move about without shortness of breath and took a shower this morning. OBJECTIVE: Vital signs: Afebrile. Pulse 71, respirations 14, blood pressure 134/72, O2 saturation on 2 L 93 to 98%. HEENT: Mild irritation and redness and possibly some white patches on the tongue. Cardiovascular: RRR. Lungs: Minimally coarse breath sounds. Good air movement. Wheezing improved. Abdomen: Nontender. Extremities: No edema. Neurologic: Nonfocal. ASSESSMENT: 1. Right lower lobe pneumonia. 2. Chronic obstructive pulmonary disease. 3. Thrombocytopenia, improving. 4. Tongue irritation, suspect thrush. PLAN: Continue Zosyn as recommended by Dr. Aguilar. Continue IV steroids. Trial of nystatin suspension for the latter. Continue O2, nebulizer treatments, prophylaxis of DVT with Lovenox. cc: MD Juan Mccurdy MD
[2016-12-25] MEDS: MYCOSTATIN SUSP PO SCH ×3 (13:57→22:31)
[2016-12-25] MEDS: LOVENOX SUBQ SCH (22:29)
[2016-12-25] MEDS: DESYREL PO SCH (22:29)
[2016-12-25] MEDS: PROTONIX IV SCH (22:29)
[2016-12-26] MEDS: NEURONTIN PO SCH ×3 (01:27→16:44)
[2016-12-26] MEDS: NORCO-7.5 PO PRN ×3 (01:27→20:34)
[2016-12-26] MEDS: ZOSYN 4.5 GM/NS 4.5 GM/100 ML IVPB IV SCH ×3 (05:04→16:46)
[2016-12-26] MEDS: SODIUM CHLORIDE 0.9% INJ SCH ×2 (05:48→20:12)
[2016-12-26] MEDS: FLONASE NAS SCH ×3 (05:48→20:35)
[2016-12-26] MEDS: MYCOSTATIN SUSP PO SCH ×4 (09:06→20:11)
[2016-12-26] MEDS: FLOMAX PO SCH (09:07)
[2016-12-26] MEDS: SOLU-MEDROL IV SCH (09:08)
[2016-12-26] MEDS: SPIRIVA INH SCH (09:15)
[2016-12-26] MEDS: ADVAIR 250/50 DISKUS INH SCH ×2 (09:15→19:30)
--- NOTE | 2016-12-26 10:17 | PROGRESS NOTE ---
DATE: 12/26/2016 SUBJECTIVE: Patient overall continues to slowly improve. Ambulating in the taylor generally well with mild shortness of breath noted. OBJECTIVE: Vital Signs: Afebrile. Pulse 72, respirations 14-20, blood pressure 144/79, O2 saturation on 3 L of 97%. Cardiovascular: RRR. Lungs: Rare wheezes. Good air movement. Distant breath sounds. Extremities: No calf tenderness, cords, or edema. ASSESSMENT: 1. Right pneumonia. 2. Chronic obstructive pulmonary disease. 3. Thrombocytopenia. 4. Thrush. PLAN: Change from IV steroids to oral steroids. Continue Zosyn per Dr. Aguilar. Continue nystatin, nebulizer treatments, O2. Repeat blood tests in the morning to check his thrombocytopenia. Likely discharge in the morning if he continues to do well. cc: MD Juan Mccurdy MD
[2016-12-26] MEDS: ROBITUSSIN-DM PO SCH ×3 (13:11→20:35)
[2016-12-26] MEDS: DUONEB (A & A) INH PRN (16:05)
[2016-12-26] MEDS: PROTONIX IV SCH (20:12)
[2016-12-26] MEDS: LOVENOX SUBQ SCH (20:14)
[2016-12-26] MEDS: DESYREL PO SCH (22:17)
[2016-12-27] MEDS: ROBITUSSIN-DM PO SCH ×6 (02:28→20:25)
[2016-12-27] MEDS: ZOSYN 4.5 GM/NS 4.5 GM/100 ML IVPB IV SCH ×3 (02:45→18:12)
[2016-12-27] MEDS: NEURONTIN PO SCH ×3 (02:45→18:12)
[2016-12-27] MEDS: NORCO-7.5 PO PRN (06:21)
--- NOTE | 2016-12-27 07:06 | PROGRESS NOTE ---
DATE: 12/27/2016 HISTORY OF PRESENT ILLNESS: The patient has a pneumococcal bacteremia and pneumonia. Also more recently, alcaligenes was isolated from the patient's sputum and this may be a super infection on top of the pneumococcal infection. MEDICATIONS: The patient is on high-dose Zosyn. PHYSICAL EXAMINATION: Vital Signs: Temperature is 97.9 degrees, pulse 70, respirations 16, and blood pressure 130/60. General: Patient is fairly healthy-appearing. He does not seem to be in any acute distress. He has not been gasping for breath. He has been walking in the halls and doing well. Lungs: Clear to auscultation. Cardiovascular: Regular heart rate. Abdomen: Soft and nontender. ENT: No drainage from the nose or ears. LABORATORY AND X-RAY: The patient's CBC shows a white count of 3050, hemoglobin 8.9 and platelet count 113,000. Blood gases show a pH of 7.38, PO2 of 86 and pCO2 of 53. Creatinine is 1. GFR is greater than 60. Patient's last x-ray on 11/23 showed bilateral effusions. There was diffuse infiltrate throughout the right lung. There was slight improvement in the infiltrate. The patient's immunoglobulin levels, specifically IgA and IgG were normal. The IgG level was 800. ASSESSMENT AND PLAN: Patient had a pneumococcal bacteremia and pneumonia. Also , there appears to be a super infection with alcaligenes causing pneumonia as well. The plan is to place the patient on Zosyn and a dose of 4.5 g IV every 6 hours for another 18 days. He will be going home. I have requested that a PICC be placed and also that [facility] be consulted to supply the patient's home IV antibiotic. Patient's comorbidities include he has COPD and he is elderly. I will be seeing the patient back in the office in roughly 18 days. I will examine him and get a repeat chest x- ray. If it shows significant clearing, we may stop the antibiotic or possibly continue on until there is complete clearing. cc: MD Juan Guerra MD MTDD
[2016-12-27 07:09] LABS: INR 1.19; PROTIME 12.6 Seconds (9.2-11.7)
[2016-12-27 07:14] LABS: EOS# 0.02 X1000 (0.0-0.7); EOS% 0.5 % (0.0-10.0); HEMATOCRIT 34.2 % (42.0-52.0); HEMOGLOBIN 11.2 g/dL (14.0-18.0); LYMPH# 1.75 X1000 (1.2-3.4); LYMPH% 45.1 % (20.5-51.1); MCH 33.5 PG (27-31); MCHC 32.7 g/dL (33-37); MCV 102.4 FL (81-99); MONO# 0.23 X1000 (0.11-0.59); MONO% 5.9 % (1.7-9.3); MPV 12.3 FL (7.4-10.4); NEUT% 48.5 % (42.2-75.2); PLT 174 X1000 (130-400); RBC 3.34 XMIL (4.7-6.1)
[2016-12-27 07:17] LABS: MANUAL DIFF NEEDED? NO
--- NOTE | 2016-12-27 08:52 | PROGRESS NOTE ---
DATE: 12/27/2016 This is a level 3 documentation. SUBJECTIVE: Interval history over 48 hours was reviewed. During the last 2 days, the patient had 1 unit of packed RBCs. REVIEW OF SYSTEMS: General: Confusion is improved still using BiPAP machine. Cardiopulmonary: A little bit of cough. No fever. No chest pain. Still using oxygen. GI: No nausea, vomiting, abdominal pain. : No history of hesitancy, frequency. Extremities: No swelling of feet Past medical history, past surgical history, medicines were reviewed. PHYSICAL EXAMINATION: Vital Signs: Afebrile. Vitals are stable. Pulse oximetry 96%. HEENT Examination: Atraumatic, normocephalic. Pupils equally reactive to light. Neck: Supple. No lymphadenopathy. Chest: Bilateral air entry and decreased with crackles. Heart: Sounds are regular. Abdomen: Belly is soft, nontender. Good bowel sounds. Extremities: No peripheral edema, cyanosis, or clubbing. INVESTIGATIONS: Repeat blood cultures 12/27/2016 are pending. Chest x-ray is pending. CBC: White cell count 3.8, hematocrit 34, platelets 174,000. PT 12, INR 1.1. ABG on 12/24/2016, pH is 7.38, pCO2 53, PO2 86 on BiPAP. The creatinine is 1.2. Chest x-ray is pending. ASSESSMENT AND PLAN: 1. Right-sided pneumonia with pneumococcal sepsis associated with a superinfection with gram- negative rods. Discussed with Dr. Aguilar. Plan of action is a peripherally inserted central catheter line, home intravenous antibiotics as per his protocol. 2. Follow up on chest x-ray. 3. Taper the prednisone dose with a Medrol Dosepak. DISPOSITION: manager social services consult for home IV antibiotics and transition care with outpatient home health. Hopefully will be discharged either today or tomorrow based on the arrangements. We will follow up. cc: Juan May MD
--- NOTE | 2016-12-27 09:28 | Diag Imaging Result Document ---
PROCEDURE NAME: CHEST-2 VIEWS - 12/27/2016 TWO VIEWS OF THE CHEST: FINDINGS: There is a left pleural effusion which was not appreciable on 12/24/2016. There are chronic pleural changes and parenchymal opacification on the right with volume loss which was present previously. There was apparently pleural fluid on the left side on 12/21/2016; however, there appears to be a greater volume on the current study. IMPRESSION: Increasing left pleural effusion.
[2016-12-27] MEDS: SPIRIVA INH SCH (09:58)
[2016-12-27] MEDS: ADVAIR 250/50 DISKUS INH SCH ×2 (09:58→20:00)
[2016-12-27] MEDS: DUONEB (A & A) INH PRN (09:59)
[2016-12-27 10:34] LABS: ALLEN TEST YES; BE 11.1 mmoll (-3.0-3.0); BLOOD TYPE ARTERIAL; DRAW SITE R RADIAL; METHB 1.7 % (0.0-1.5); O2(CT) 14.9 mL/dL (15.0-23.0); PCO2(98.6) 47 mmHg (35-45); PO2(98.6) 86 mmHg (60-100); SAMPLE BLOOD; SAO2 97.7 % (95.0-100.0); THB 11.1 g/dL (11.5-17.4); pH(98.6) 7.49 (7.35-7.45)
[2016-12-27 10:35] LABS: MODALITY CANNULA
[2016-12-27] MEDS: FLOMAX PO SCH (10:57)
[2016-12-27] MEDS: PREDNISONE PO SCH (10:57)
[2016-12-27] MEDS: MYCOSTATIN SUSP PO SCH ×4 (10:59→20:25)
[2016-12-27] MEDS: FLONASE NAS SCH ×2 (11:00→22:15)
[2016-12-27] MEDS ORDERED: NS 250 ML ONE (11:12)
[2016-12-27] MEDS: DESYREL PO SCH (20:25)
[2016-12-27] MEDS: LOVENOX SUBQ SCH (20:26)
[2016-12-27] MEDS ORDERED: PROTONIX PO SCH (21:00)
[2016-12-28] MEDS: ROBITUSSIN-DM PO SCH ×4 (00:16→08:13)
[2016-12-28] MEDS: ZOSYN 4.5 GM/NS 4.5 GM/100 ML IVPB IV SCH ×2 (00:28→05:16)
[2016-12-28] MEDS: NORCO-7.5 PO PRN ×2 (00:44→08:29)
[2016-12-28] MEDS: NEURONTIN PO SCH ×2 (01:44→08:12)
[2016-12-28 03:05] VITALS: BP 106/60
--- NOTE | 2016-12-28 07:05 | PROGRESS NOTE ---
DATE: 12/28/2016 PRESENT ILLNESS: Patient has a pneumococcal bacteremia and pneumonia. He also has an alcaligenes pneumonia as well. MEDICATIONS: The patient is taking Zosyn in a high dose. PHYSICAL EXAMINATION: Vital Signs: Temperature is 98.6 degrees, pulse 58, respirations 16, blood pressure 106/60. Generally: This is a fairly healthy-appearing now compared to what he was like when he came in, elderly male who is in no acute distress. Lungs: Clear to auscultation. Cardiovascular: Regular heart rate. Extremities: The patient's PICC site is not erythematous or swollen. Abdomen: Soft and nontender. LAB AND X-RAY: The patient's CBC today shows a white count of 3880, hemoglobin 11.2, and platelet count 174,000. Patient's blood gases show a pH of 7.49, a PO2 of 86, and a pCO2 of 47. The creatinine is 1.2. There is no chest x-ray scheduled for today. ASSESSMENT AND PLAN: The plan is for the patient to go home today on high-dose Zosyn. The patient's comorbidities include chronic obstructive pulmonary disease and he is elderly. I will see the patient back in approximately 18 days at which time I will examine him and get a repeat chest x-ray. Hopefully, there will be significant clearing and we may stop the antibiotic or continue on until there is clearing. cc: MD Juan Guerra MD
[2016-12-28] MEDS ORDERED: PREVNAR 13 IM ONE (08:05)
[2016-12-28] MEDS: MYCOSTATIN SUSP PO SCH (08:11)
[2016-12-28] MEDS: PREDNISONE PO SCH (08:12)
[2016-12-28] MEDS: FLOMAX PO SCH (08:12)
[2016-12-28] MEDS: FLONASE NAS SCH (08:17)
--- NOTE | 2016-12-28 22:21 | DISCHARGE SUMMARY ---
ADMISSION DATE: 12/24/2016 DISCHARGE DATE: 12/28/2016 DISCHARGING DIAGNOSIS: Acute metabolic encephalopathy due to pneumococcal sepsis, associated with a superinfection with gram-negative rods, alcaligenes xylosoxi. SECONDARY DIAGNOSES: 1. Right lower lobe bronchiectasis. 2. Hypogonadism. 3. Chronic obstructive pulmonary disease, on oxygen. 4. Obstructive sleep apnea on BiPAP. 5. Benign prostatic hypertrophy. 6. Gastroesophageal reflux disease. 7. Chronic back pain. 8. Anemia due to chronic disease. 9. Transfusion of 2 units of packed red blood cells. 10. PICC line, left side. CONSULTANTS: Dr. Teddy Aguilar Noninvasive ventilator support. BRIEF HISTORY: Please see the H and P that was done at [facility]. In brief, he is a 71-year- old white male with a history of sleep apnea on CPAP machine, COPD on oxygen, chronic right bronchiectasis, admitted [facility] in ICU with altered mental status, confusion with pneumococcal sepsis syndrome. He had positive blood cultures along with gram-negative rods in the sputum. He was seen by Dr. Aguilar. HOSPITAL COURSE: For pneumococcal sepsis he was started on Rocephin and Levaquin. He also briefly developed thrombocytopenia, anemia, and mild azotemia. He continues to have confusion, hypoxemia, and the decided to be transferred out from [facility] to [facility]. He appears to be docile and stable. His sepsis syndrome was resolved. Admitted on the floor. He has been tolerating the diet regular. He had anemia requiring 2 units of packed RBCs. Hemoccult was negative. Dr. Aguilar recommended 2 weeks of outpatient IV Zosyn in light of pneumococcal sepsis and gram-negative infection. Follow up chest x-ray is improving. PICC line was placed and a home IV antibiotics arranged through the [facility]. LABORATORIES: CBC: White cell count 3.8, hematocrit. 34.2, MCV 102, platelet 174,000. ABG: PH is 7.49, pCO2 47, PO2 86, on 36%. SMA7: Sodium 139, potassium 4.4, creatinine 1.2, BUN 17, glucose 150. LFTs were normal. IgG levels were normal. Microbiology cultures: Strep pneumonia, sputum cultures, alcaligenes xylosi infection and they have been sensitive for penicillin and Zosyn. Patient was given pneumococcal 13 vaccine prior to the discharge. DISCHARGE INSTRUCTIONS: Pneumonia vaccine 13 prior to the discharge. Oxygen 3 L. Outpatient home health care. Home IV antibiotics the next 2 weeks with IV Zosyn by Dr. Teddy Aguilar. Gabapentin 800 t.i.d., Flomax 0.4 daily, Prilosec 40 daily, trazodone 150 daily. [place] 7.5 q.8 hours as needed. Requip 1 mg tablet daily, Robaxin 750 t.i.d., Spiriva 1 inhalation daily, Advair 250/50, one puff b.i.d., MiraLAX as needed, and follow up in my office in 10 days as well as Dr. Teddy Aguilar. cc: MD Teddy Crabtree MD
== END 2016-12-28 10:02 | disposition home health service (06) ==
LOC: P.ICU 09:09 → P.MEDSURG 12-20 11:03 → P.ICU 12-20 14:50 → P.MEDSURG 12-21 11:33 → UNDODISIN 12-23 18:40 → 4N 12-23 20:50
PROVIDERS: ADMIT Internal Medicine; ATTEND Internal Medicine

== ENCOUNTER 2017-02-14 14:28 | Inpatient (IN) ==
[2017-02-14] MEDS ORDERED: NS 1,000 ML IV ONE ×2 (14:59→15:17)
[2017-02-14] MEDS ORDERED: TYLENOL PO ONE (14:59)
[2017-02-14] MEDS ORDERED: NS 2,000 ML ONE (15:00)
[2017-02-14] MEDS ORDERED: MORPHINE IV ONE (15:01)
[2017-02-14] MEDS ORDERED: ZOFRAN IV ONE (15:02)
[2017-02-14 15:18] LABS: ALLEN TEST YES; BE 8.5 mmoll (-3.0-3.0); BLOOD TYPE ARTERIAL; DRAW SITE R RADIAL; METHB 1.1 % (0.0-1.5); O2(CT) 13.1 mL/dL (15.0-23.0); PCO2(98.6) 37 mmHg (35-45); PO2(98.6) 50 mmHg (60-100); SAMPLE BLOOD; SAO2 90.4 % (95.0-100.0); THB 10.6 g/dL (11.5-17.4); pH(98.6) 7.54 (7.35-7.45)
[2017-02-14 15:20] LABS: MODALITY CANNULA
[2017-02-14] MEDS ORDERED: LEVAQUIN 500 MG/D5W 500 MG/100 ML IVPB IV ONE (15:24)
[2017-02-14] MEDS ORDERED: ZOSYN 3.375 GM/NS 3.375 GM/50 ML IVPB IV ONE (15:24)
[2017-02-14 15:36] LABS: BASO% 0.1 % (0.0-0.8); EOS# 0.03 X1000 (0.0-0.7); EOS% 0.4 % (0.0-10.0); HEMOGLOBIN 11.2 g/dL (14.0-18.0); MANUAL DIFF NEEDED? YES; MCH 35.1 PG (27-31); MCHC 33.9 g/dL (33-37); MCV 103.4 FL (81-99); MONO# 0.36 X1000 (0.11-0.59); MONO% 4.8 % (1.7-9.3); NEUT% 78.7 % (42.2-75.2); PLT 96 X1000 (130-400); RBC 3.19 XMIL (4.7-6.1)
[2017-02-14 15:38] LABS: AGAP 11; ALBUMIN 4.1 g/dL (3.5-5.0); ALKALINE PHOSPHATASE 72 U/L (32-122); AMYLASE 62 U/L (20-200); BUN 11 mg/dL (8-22); CALCIUM 9.2 mg/dL (8.8-10.2); CHLORIDE 94 mmol/L (98-107); COSMO 269; GOT 28 U/L (10-34); GPT 29 U/L (10-44); LIPASE 11 U/L (13-60); POTASSIUM 3.8 mmol/L (3.5-5.1); SODIUM 135 mmol/L (136-145); TCO2 30 mmol/L (25-35); TOTAL BILIRUBIN 0.82 mg/dL (0.20-1.00); TOTAL PROTEIN 7.6 g/dL (6.3-8.3)
--- NOTE | 2017-02-14 15:38 | Diag Imaging Result Doc PS360 ---
EXAM: CHEST-2 VIEWS HISTORY: ams sepsis TECHNIQUE: COMPARISON: 01/18/2017 FINDINGS: There are dense infiltrates in the mid right lung. The left lung remains well expanded and clear. Heart is not enlarged. Small right effusion versus pleural thickening. IMPRESSION: Dense right lung pneumonia. Electronically signed by Darrius Oates 02/14/2017 3:36 PM
[2017-02-14 15:39] LABS: URINE CULTURE NEEDED? NO; URINE MICRO REVIEW NEEDED? NO; URINE SOURCE CLEAN CATCH
[2017-02-14 15:43] LABS: BANDS 4 % (0-1); LYMPHS 28 % (21-51); MONO 2 % (1-9)
[2017-02-14 15:51] LABS: BILIRUBIN URINE NEGATIVE (NEGATIVE); BLOOD URINE NEGATIVE (NEGATIVE); COLOR YELLOW; GLUCOSE URINE NEGATIVE (NEGATIVE); LEUKOCYTES URINE NEGATIVE (NEGATIVE); NITRITE URINE NEGATIVE (NEGATIVE); PROTEIN URINE NEGATIVE (NEGATIVE); SP GRAVITY URINE 1.011; TURBIDITY URINE CLEAR (CLEAR); UROBILINOGEN URINE NORMAL (NORMAL)
[2017-02-14 15:52] LABS: UR EPITHELIAL CELLS <10 /HPF (<10); URINE BACTERIA NEGATIVE /HPF; URINE RBC <10 /HPF (<10); URINE WBC <10 /HPF (<10)
[2017-02-14 15:55] LABS: INR 1.05; PROTIME 11.1 Seconds (9.2-11.7); PTT 25.2 Seconds (22.0-36.0)
[2017-02-14 16:00] LABS: UR AMPHETAMINES QUAL NONE DETECTED (NONE DETECT); UR BARBITUATES QUAL NONE DETECTED (NONE DETECT); UR BENZODIAZEPIN QUAL NONE DETECTED (NONE DETECT); UR CANNABINOIDS QUAL NONE DETECTED (NONE DETECT); UR COCAINE QUAL NONE DETECTED (NONE DETECT); UR METHADONE QUAL NONE DETECTED (NONE DETECT); UR OPIATES QUAL PRESUMPTIVE POSITIVE (NONE DETECT); UR OXYCODONE QUAL NONE DETECTED (NONE DETECT); UR PCP QUAL NONE DETECTED (NONE DETECT)
[2017-02-14] MEDS ORDERED: XOPENEX NEB INH ONE (16:02)
[2017-02-14] MEDS ORDERED: NS NEB INH SCH (16:15)
--- NOTE | 2017-02-14 16:30 | Diag Imaging Result Doc PS360 ---
EXAM: HEAD W/O CONTRAST HISTORY: ams confusion TECHNIQUE: COMPARISON: 12/20/2016 FINDINGS: No parenchymal hemorrhage. No epidural or subdural hematoma. No subarachnoid hemorrhage. No mass identified on this noncontrasted exam. No hydrocephalus. No sinus opacification. Mild atrophy similar to the prior exam. IMPRESSION: No hemorrhage. No change in the prior exam. Electronically signed by Darrius Oates 02/14/2017 4:28 PM
--- NOTE | 2017-02-14 16:34 | PROVIDER DOCUMENTATION ---
This chart was entered by Kelly Marvin Scribe, acting as scribe for Kaykay Saunders MD. HPI-General Adult - General Chief Complaint: Fever Stated Complaint: CONFUSION / FEVER Time Seen by Provider: 02/14/17 14:54 Source: patient Allergies/Adverse Reactions: Patient Allergies Allergy/AdvReac Type Severity Reaction Status Date / Time No Known Allergies Allergy Unverified 10/12/15 21:38 Home Medications: Home Medication List Medication Instructions Recorded Confirmed Last Taken Type Gabapentin 800 mg PO TID 01/17/14 02/14/17 02/14/17 07:00 History 800 MG Tamsulosin [Flomax] 0.4 mg PO QHS 01/17/14 02/14/17 02/14/17 07:00 History 0.4 MG Omeprazole [Prilosec] 40 mg PO DAILY 02/14/15 02/14/17 02/14/17 07:00 History 40 MG Trazodone [Desyrel] 150 tab PO QHS 09/17/15 02/14/17 02/14/17 07:00 History 150 TAB Hydrocodone/APAP 7.5 mg/325 mg 1 tab Q8HR 12/18/16 02/14/17 02/14/17 07:00 History [Ruffin-7.5] 1 TAB Methocarbamol [Robaxin-750] 750 mg TID 12/18/16 02/14/17 02/14/17 07:00 History 750 MG Pramipexole Di-HCl [Pramipexole 1 tab PO DAILY 12/18/16 02/14/17 02/14/17 07:00 History Dihydrochloride] 1 TAB Tiotropium Olpe Inhaler 1 cap DAILY 12/18/16 02/14/17 02/14/17 07:00 History [Spiriva] 1 CAP Fluticasone/Salmet 250/50 INH 2 puff INH DAILY 12/19/16 02/14/17 02/14/17 07:00 History [Advair 250/50 Diskus] 2 PUFF Albuterol Sulfate [Proair Hfa] 1 puff PRN PRN 12/20/16 02/14/17 02/14/17 07:00 History 1 PUFF Polyethylene Glycol 3350 [Miralax] 1 packet PO DAILY 12/21/16 02/14/17 02/14/17 07:00 History 1 PACKET - History of Present Illness -Gen Adult Nature of Presenting Problems: Pt is a 71 year old male who came to the ED with a cc of fever and confusion. Pt came home this morning and couldn't find the pt. When the found the she reports that he was in the bathroom saying, "I can't find the bathroom.", and he had urinated on the floor. Pt family reports that he was shivering. Pt had these symptoms one month ago and was admitted for sepsis and pneumonia. Location of Pain/Injury: reports: none, back (family states pt with chronic back pain and is on pain meds he did not take his pain meds today) Pain Radiation: reports: no radiation Severity: reports: mild Onset/Duration: reports: this morning (confusion shivering) Timing: reports: still present Context/Activities at Onset: reports: none Modifying Factors: improves with: nothing Associated Symptoms: reports: fever/chills, other (confusion) Similar Symptoms Previously?: Yes Recently seen or treated by another doctor?: Yes (recently admitted for sepsis was on zosyn at home until 1 week ago) Review of Systems - Adult - REVIEW OF SYSTEMS - ADULT Constitutional: reports: chills, fever. denies: fatique, night sweats Eyes: reports: no symptoms reported Ears, Nose, Mouth & Throat: reports: no symptoms reported Cardiovascular: reports: no symptoms reported Respiratory: reports: no symptoms reported Gastrointestinal: reports: no symptoms reported Genitourinary: reports: no symptoms reported Musculoskeletal: reports: back pain. denies: joint pain, joint swelling Integumentary: reports: no symptoms reported Neurological: reports: tremors, other (confused). denies: dizziness/vertigo, numbness Psychiatric: reports: no symptoms reported Endocrine: reports: no symptoms reported Hematologic/Lymphatic: reports: no symptoms reported Allergic/Immunologic: reports: no symptoms reported All Other Systems: Reviewed and Negative Past History - Adult - PAST MEDICAL HISTORY-ADULT Review of Records: reports: Nursing Assessment Review Major Childhood Illnesses: reports: denies history Cardiovascular: reports: CHF Respiratory: reports: COPD Gastrointestinal: reports: GERD Obstetrical/Gynecological: reports: denies history Genitourinary: reports: denies history Musculoskeletal: reports: denies history Neurological: reports: denies history Endocrine/Immune: reports: denies history Other Conditions: reports: denies history - PRIOR SURGERIES/PROCEDURES Surgical/Procedure History: reports: tonsillectomy, orthopedic (extremity) (r. clavical fx, bilat foot), other (cataract) - IMMUNIZATION STATUS Childhood Immunizations: See Nurse Assessment Flu Vaccine: See Nurse Assessment - FAMILY HISTORY Family History: reviewed, not pertinent - SOCIAL HISTORY Smoking: denies Substance Use: none/never Alcohol Use Frequency: never Living Situation: family Physical Exam-General - PHYSICAL EXAM-ADULT Initial Vital Signs Reviewed: Yes - CONSTITUTIONAL General Appearance: alert, moderate distress (appears ill) - EYES Eyes: PERRL/EOMI - HEAD, EARS, NOSE, MOUTH & THROAT HENMT: normocephalic/atraumatic, moist mucous membranes - NECK Neck: normal inspection - RESPIRATORY Respiratory: chest non-tender, decreased breath sounds - CARDIOVASCULAR Cardiovascular: regular rate, rhythm, tachycardia - GASTROINTESTINAL (ABDOMEN) Abdominal Exam: non tender, soft - MUSCULOSKELETAL Back Exam: no vertebral tenderness Extremity: normal range of motion, non-tender, normal inspection, other (pt follows commands) - SKIN Integumentary: normal color, normal turgor, warm/dry - NEUROLOGIC Neurologic: grossly normal, no motor/sensory deficits - PSYCHIATRIC Psych/Mental Status: other (confused. oriented to name and place) Progress - PLAN OF CARE/RESULTS Progress/Plan/Lab Results: Vital Signs - 8 hr 02/14/17 14:37 Temperature 103.3 F H Pulse Rate 116 H Respiratory Rate 22 Blood Pressure 129/58 O2 Sat by Pulse Oximetry 94 L review of chest xray indicates multilobar pneumonia worse than on previous exam in january. case dw dr orta who is covering for dr mcgill today will come in to evaluated patient and admit to the hospital. will admit sor sepsis and pneumonia Result Diagrams: 02/14/17 14:51 02/14/17 14:51 Departure - Departure Time of Disposition Decision: 16:33 DIAGNOSIS: Pneumonia Qualifiers: Pneumonia type: due to unspecified organism Laterality: bilateral Lung location : unspecified part of lung Qualified Code(s): J18.9 - Pneumonia, unspecified organism Sepsis Qualifiers: Sepsis type: sepsis due to unspecified organism Qualified Code(s): A41.9 - Sepsis, unspecified organism Disposition: ADMITTED INPATIENT 09 Certified Medical Emergency: Emergent Condition: Fair Referrals and Follow-Ups: Marybeth Mcgill MD [Primary Care Provider] - - Critical Care Note This patient required my direct & personal management of CC.: Yes Total Time (mins): 50 Critical Care Statement: This patient required my direct personal management to treat or rule out processes, the absence of which, could potentiallly result in sudden, clinically significant life or limb threatening deterioration. This chart was documented by the indicated scribe, (Kelly Marvin Scribe) and accurately reflects the services I performed and decisions made by me, Kaykay Saunders MD, as attested by the provider's signature.
[2017-02-14] MEDS ORDERED: NS 500 ML IV ONE (16:55)
[2017-02-14] MEDS ORDERED: VANCOMYCIN IV PER PHARMACY MISC SCH ×2 (17:15→18:02)
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
[2017-02-14] MEDS: LOVENOX SUBQ SCH (18:35)
[2017-02-14] MEDS: ADVAIR 250/50 DISKUS INH SCH (19:13)
[2017-02-14] MEDS: SPIRIVA INH SCH (19:13)
[2017-02-14] MEDS: ALBUTEROL NEB INH SCH ×2 (19:13→22:52)
[2017-02-14] MEDS: TYLENOL PO PRN (19:28)
[2017-02-14] MEDS ORDERED: VANCOMYCIN 2 GM in NS 500 ML IV ONE (20:00)
[2017-02-14] MEDS: FLOMAX PO SCH (20:39)
[2017-02-14] MEDS: NORCO-7.5 PO PRN (20:40)
[2017-02-14] MEDS: NEURONTIN PO SCH (20:40)
[2017-02-14] MEDS ORDERED: NORCO-7.5 PO SCH (21:00)
[2017-02-14] MEDS ORDERED: AYR NASAL SPRAY NAS PRN (21:45)
[2017-02-14] MEDS: ZOSYN 3.375 GM/NS 3.375 GM/50 ML IVPB IV SCH (21:53)
[2017-02-14] MEDS: DESYREL PO SCH (23:38)
[2017-02-15] MEDS: ALBUTEROL NEB INH SCH ×6 (03:25→23:17)
[2017-02-15] MEDS: ZOSYN 3.375 GM/NS 3.375 GM/50 ML IVPB IV SCH ×4 (03:44→21:46)
[2017-02-15] MEDS: TYLENOL PO PRN ×3 (03:50→23:32)
[2017-02-15 04:07] LABS: ALLEN TEST YES; BE 4.3 mmoll (-3.0-3.0); BLOOD TYPE ARTERIAL; DRAW SITE R RADIAL; METHB 1.5 % (0.0-1.5); O2(CT) 13.7 mL/dL (15.0-23.0); PCO2(98.6) 44 mmHg (35-45); PO2(98.6) 80 mmHg (60-100); SAMPLE BLOOD; SAO2 97.7 % (95.0-100.0); THB 10.3 g/dL (11.5-17.4); pH(98.6) 7.43 (7.35-7.45)
[2017-02-15 04:08] LABS: MODALITY CANNULA
[2017-02-15 04:54] LABS: BASO% 0.1 % (0.0-0.8); EOS# 0.03 X1000 (0.0-0.7); EOS% 0.3 % (0.0-10.0); HEMATOCRIT 28.6 % (42.0-52.0); HEMOGLOBIN 9.6 g/dL (14.0-18.0); LYMPH# 1.75 X1000 (1.2-3.4); LYMPH% 19.5 % (20.5-51.1); MANUAL DIFF NEEDED? YES; MCH 34.8 PG (27-31); MCHC 33.6 g/dL (33-37); MCV 103.6 FL (81-99); MONO# 0.31 X1000 (0.11-0.59); MONO% 3.5 % (1.7-9.3); NEUT% 76.6 % (42.2-75.2); PLT 73 X1000 (130-400); RBC 2.76 XMIL (4.7-6.1)
[2017-02-15 05:44] LABS: CALCIUM 7.9 mg/dL (8.8-10.2)
[2017-02-15 06:44] LABS: LYMPHS 19 % (21-51); MONO 3 % (1-9)
--- NOTE | 2017-02-15 07:13 | Diag Imaging Result Doc PS360 ---
EXAM: CHEST-PORTABLE HISTORY: dyspnea TECHNIQUE: Erect AP portable at 0505 COMMENT: Compared to 02/14/2017 there is increasing opacification in the superior segment of the right lower lobe in addition to the right upper lobe. IMPRESSION: Worsening pneumonia on the right. Electronically signed by Brooks Olson 02/15/2017 7:11 AM
[2017-02-15] MEDS: SPIRIVA INH SCH (08:04)
[2017-02-15] MEDS: ADVAIR 250/50 DISKUS INH SCH (08:04)
[2017-02-15] MEDS: MIRALAX PO SCH (08:34)
[2017-02-15] MEDS: NEURONTIN PO SCH ×3 (08:35→16:56)
[2017-02-15] MEDS: PRILOSEC PO SCH (08:35)
[2017-02-15] MEDS: NORCO-7.5 PO PRN ×2 (08:37→18:40)
--- NOTE | 2017-02-15 08:46 | PROGRESS NOTE ---
DATE: 02/15/2017 Level 3 documentation in intensive care unit. SUBJECTIVE: Patient was sitting out of the bed. He was admitted on 02/14/2017 with altered mental status, worsening of right lower lobe pneumonia. He was recently treated with streptococcal pneumonia with underlying bronchiectasis. He was doing very well in my office. Apparently, he is slightly improved, and he was started on triple antibiotics. REVIEW OF SYSTEMS: HEENT: No headache. No dizziness. Cardiopulmonary: No shortness of breath, PND, orthopnea. GI: No nausea, vomiting, abdominal pain. : No history of hesitancy, frequency. PHYSICAL EXAMINATION: General Examination: He has a low-grade fever. Vital Signs: Blood pressure is 100/60 on 4 L of nasal cannula 99%. HEENT Exam: Within normal limits. Neck: Supple. No lymphadenopathy. Chest: He has rales in the right side and crackles. Heart: Distant heart sounds. Abdomen: Belly is soft, nontender. Good bowel sounds. No masses palpable. Extremities: No peripheral edema, cyanosis or clubbing. Neurologic exam: No obvious deficits noted. INVESTIGATIONS: White cell count 8.9, hematocrit 28, platelets 73. ABG: The pH is 7.43, pCO2 44, PO2 80 on 40%. SMA 7: Sodium 135, potassium 4.0, chloride 99, BUN 15, creatinine 1.2, glucose 7.9. LFTs were normal. Urinalysis is clear. ASSESSMENT AND PLAN: 1. A 71-year-old white gentleman admitted to the hospital with altered mental status due to metabolic encephalopathy due to hypoxemia. 2. Acute respiratory failure with underlying bronchiectasis with recurrent infection. Consulted by Dr. Aguilar. He is currently on Levaquin, vancomycin and Zosyn. Continue on bronchodilators. Deep vein thrombosis prophylaxis with Lovenox. 3. Benign prostatic hyperplasia on Flomax. 4. Chronic insomnia on trazodone. 5. Advance the diet. We will closely monitor sepsis syndrome and will follow up. LEVEL OF DOCUMENTATION: 35 minutes. cc: Juan May MD
--- NOTE | 2017-02-15 16:22 | PROGRESS NOTE ---
DATE: 02/15/2017 PRESENT ILLNESS: The patient is readmitted to the hospital with right-sided pneumonia. He recently had been hospitalized at [facility] and was sent home on IV antibiotics for a prolonged time. I am concerned that the patient may have an immunoglobulin deficiency. When he was in last time me he grew out Streptococcus pneumoniae from his blood and alcaligenes from his sputum. MEDICATIONS: Medications patient currently is on vancomycin, Zosyn and Levaquin. PHYSICAL EXAMINATION: Vital Signs: Temperature is 99.2 degrees, pulse 81, respirations 22, blood pressure 98/56. The patient's weight is listed as 146 pounds. Generally: This is a fairly healthy-appearing, elderly male. He is in no acute distress. Ear, nose and throat: He can hear my spoken words and see near objects. Neck: No meningismus. Thorax: Patient had an increased AP diameter to the chest. Lungs: Clear to auscultation. Cardiovascular: Heart rate was regular. Abdomen: Soft and nontender. Neurologic: Patient is alert. He can move his extremities. ASSESSMENT AND PLAN: Patient has recurrent pneumonia in [facility] and I switched Levaquin from IV to p.o. I agree with vancomycin and Zosyn. I have ordered immunoglobulin levels to see if he has an immunoglobulin deficiency. Plan would be to continue the current antibiotics pending cultures. COMORBIDITIES: Include COPD, obstructive sleep apnea, patient also has bronchiectasis. cc: MD Juan Guerra MD MTDD
[2017-02-15] MEDS: LEVAQUIN PO SCH (16:57)
[2017-02-15] MEDS: LOVENOX SUBQ SCH (16:57)
[2017-02-15] MEDS ORDERED: LEVAQUIN 500 MG/D5W 500 MG/100 ML IVPB IV SCH (17:00)
[2017-02-15] MEDS: VANCOMYCIN 1.6 GM in NS 250 ML IV SCH (20:06)
[2017-02-15] MEDS: DESYREL PO SCH (20:37)
[2017-02-15] MEDS: FLOMAX PO SCH (20:38)
[2017-02-16] MEDS: ALBUTEROL NEB INH SCH ×6 (03:08→23:40)
[2017-02-16] MEDS: ZOSYN 3.375 GM/NS 3.375 GM/50 ML IVPB IV SCH ×4 (04:00→22:49)
[2017-02-16 04:18] LABS: ALLEN TEST YES; BE 2.5 mmoll (-3.0-3.0); BLOOD TYPE ARTERIAL; DRAW SITE R RADIAL; METHB 1.1 % (0.0-1.5); O2(CT) 17.7 mL/dL (15.0-23.0); PCO2(98.6) 45 mmHg (35-45); PO2(98.6) 117 mmHg (60-100); SAMPLE BLOOD; SAO2 99.8 % (95.0-100.0); THB 12.9 g/dL (11.5-17.4)
[2017-02-16 04:19] LABS: MODALITY CANNULA
[2017-02-16 05:09] LABS: CALCIUM 8.6 mg/dL (8.8-10.2); POTASSIUM 3.9 mmol/L (3.5-5.1)
[2017-02-16 05:25] LABS: EOS# 0.05 X1000 (0.0-0.7); EOS% 0.7 % (0.0-10.0); HEMATOCRIT 27.4 % (42.0-52.0); HEMOGLOBIN 9.1 g/dL (14.0-18.0); LYMPH# 1.24 X1000 (1.2-3.4); LYMPH% 17.8 % (20.5-51.1); MANUAL DIFF NEEDED? YES; MCH 34.3 PG (27-31); MCHC 33.2 g/dL (33-37); MCV 103.4 FL (81-99); MONO# 0.36 X1000 (0.11-0.59); MONO% 5.2 % (1.7-9.3); NEUT% 76.3 % (42.2-75.2); PLT 67 X1000 (130-400); RBC 2.65 XMIL (4.7-6.1)
[2017-02-16 07:15] LABS: BANDS 6 % (0-1); LYMPHS 25 % (21-51); MONO 3 % (1-9)
[2017-02-16] MEDS: NORCO-7.5 PO PRN ×3 (07:26→22:52)
[2017-02-16] MEDS: ADVAIR 250/50 DISKUS INH SCH (08:00)
[2017-02-16] MEDS: SPIRIVA INH SCH (08:00)
[2017-02-16] MEDS: PRILOSEC PO SCH (08:04)
[2017-02-16] MEDS: TYLENOL PO PRN ×3 (08:04→22:52)
[2017-02-16] MEDS: MIRALAX PO SCH (08:05)
[2017-02-16] MEDS: NEURONTIN PO SCH ×3 (08:05→17:11)
--- NOTE | 2017-02-16 08:29 | PROGRESS NOTE ---
DATE: 02/16/2017 SUBJECTIVE: The patient is still running fever. Not appear to be short of breath. No confusion now. REVIEW OF SYSTEMS: No complaints. He was out of bed tolerating the cardiac healthy diet well. The patient was seen by Dr. Aguilar. Changed the antibiotics to p.o. Levaquin. Previous IgG levels were normal. Review of systems none reported. OBJECTIVE: Vital Signs: A fever to 101. Blood pressure is 118/68, on 3 L oxygen at 98%. HEENT: Within normal limits. Neck: Supple. Chest: Crackles in the right base. Heart: Sounds are regular. Abdomen: Belly is soft, nontender. Neurologic: No neurological deficits. INVESTIGATIONS: White cell count 6.9, hematocrit 27, platelets 67,000. ABG 7.40, pCO2 45, PO2 117 on 44%. SMA 7 is normal. Chest x-ray was pending. Blood cultures are negative. Sputum is gram-positive cocci. ASSESSMENT AND PLAN: 1. Bronchiectasis, chronic right with recurrent pneumonia. Gram-positive coccus. We will follow up and slightly early sepsis syndrome with thrombocytopenia. Continue on triple antibiotics with Levaquin, vancomycin and Zosyn. Follow up on C S 2. Deep vein thrombosis prophylaxis with Lovenox. 3. Chronic pain. On [place] and gabapentin 4. Gastrointestinal prophylaxis with Prilosec 5. We will follow up on chest x-ray. 6. Continue to monitor in ICU. LEVEL OF DOCUMENTATION: Twenty-five minutes. cc: Juan May MD
--- NOTE | 2017-02-16 08:36 | Diag Imaging Result Doc PS360 ---
EXAM: CHEST-2 VIEWS HISTORY: hypoxia TECHNIQUE: COMPARISON: 02/15/2017 FINDINGS: There are infiltrates throughout the right lung. These are slightly less dense than on the prior exam. The heart is not enlarged. There is a small right effusion with calcified pleural plaques. IMPRESSION: Mild interval improvement Electronically signed by Darrius Oates 02/16/2017 8:33 AM
--- NOTE | 2017-02-16 09:21 | PROGRESS NOTE ---
DATE: 02/16/2017 PRESENT ILLNESS: The patient has a right-sided pneumonia. He has been receiving for the past 2 days vancomycin and Zosyn. MEDICATIONS: As mentioned above, the patient is on a combination of vancomycin, Zosyn IV and Levaquin p.o. PHYSICAL EXAMINATION: Vital Signs: Temperature maximum was 101.5, pulse 94, respirations 21 and blood pressure 118/69. General: This is a healthy-appearing elderly male. He is in no acute distress. Cardiovascular: Heart rate is regular. Lungs: Clear to auscultation. Abdomen: Soft and nontender. LABORATORY AND X-RAY: Chest x-ray today shows improvement in the right lung infiltrates. Patient's CBC shows a white count of 6970, hemoglobin 9.1, and platelet count 67,000. Blood gases show a pH of 7.4, PO2 of 117, pCO2 of 45 and creatinine is 1.2. The GFR is 60. ASSESSMENT AND PLAN: Patient has pneumonia. My plan is to continue with his current antibiotics anywhere from 3-6 more weeks. COMORBIDITIES: Include the following, he is elderly. He has COPD, obstructive sleep apnea and bronchiectasis. I have ordered immunoglobulin levels on the patient but do not see where they have returned yet. cc: MD Juan Guerra MD
[2017-02-16 09:50] LABS: INR 1.26; PROTIME 13.4 Seconds (9.2-11.7)
[2017-02-16] MEDS ORDERED: NS 250 ML ONE (12:49)
[2017-02-16] MEDS: LOVENOX SUBQ SCH (17:11)
[2017-02-16] MEDS: LEVAQUIN PO SCH (17:11)
[2017-02-16] MEDS: DESYREL PO SCH (20:32)
[2017-02-16] MEDS: VANCOMYCIN 1.6 GM in NS 250 ML IV SCH (20:32)
[2017-02-16] MEDS: FLOMAX PO SCH (20:33)
[2017-02-17] MEDS: ZOSYN 3.375 GM/NS 3.375 GM/50 ML IVPB IV SCH ×2 (03:44→09:17)
[2017-02-17] MEDS: ALBUTEROL NEB INH SCH ×6 (03:53→23:30)
[2017-02-17 06:01] LABS: EOS# 0.06 X1000 (0.0-0.7); EOS% 1.2 % (0.0-10.0); HEMATOCRIT 24.2 % (42.0-52.0); HEMOGLOBIN 8.1 g/dL (14.0-18.0); LYMPH# 1.17 X1000 (1.2-3.4); LYMPH% 23.6 % (20.5-51.1); MANUAL DIFF NEEDED? NO; MCH 34.8 PG (27-31); MCHC 33.5 g/dL (33-37); MCV 103.9 FL (81-99); MONO# 0.34 X1000 (0.11-0.59); MONO% 6.9 % (1.7-9.3); NEUT% 68.3 % (42.2-75.2); PLT 58 X1000 (130-400); RBC 2.33 XMIL (4.7-6.1)
[2017-02-17 06:16] LABS: AGAP 8; BUN 13 mg/dL (8-22); CALCIUM 8.9 mg/dL (8.8-10.2); CHLORIDE 102 mmol/L (98-107); COSMO 277; POTASSIUM 4.1 mmol/L (3.5-5.1); SODIUM 139 mmol/L (136-145); TCO2 29 mmol/L (25-35)
[2017-02-17] MEDS: ADVAIR 250/50 DISKUS INH SCH (07:30)
[2017-02-17] MEDS: SPIRIVA INH SCH (07:30)
[2017-02-17] MEDS: PRILOSEC PO SCH (08:13)
[2017-02-17] MEDS: NEURONTIN PO SCH ×3 (08:13→16:34)
[2017-02-17] MEDS: NORCO-7.5 PO PRN ×2 (08:13→17:47)
[2017-02-17] MEDS: MIRALAX PO SCH (08:14)
[2017-02-17] MEDS: TYLENOL PO PRN ×2 (08:14→17:55)
--- NOTE | 2017-02-17 08:57 | PROGRESS NOTE ---
DATE: 02/17/2017 SUBJECTIVE: The patient complains of not getting his home medicines. Complains of some back pain. He looks so a little bit stable and denies of any symptoms. No mental confusion. No shortness of breath. PHYSICAL EXAMINATION: Vital Signs: On examination, he is a still running fever , tachycardic. Hemodynamics are stable. Nasal cannula at 2 L on 93% HEENT: Exam is within normal limits. Neck: Supple. Chest: Crackles in the right base. Heart: Sounds are regular. Abdomen: Belly is soft, nontender. Good bowel sounds. Neurologic: No neurological deficits. INVESTIGATIONS: CBC: White cell count 4.96, hematocrit 24, MCV 103, platelets 58,000. INR is 1.2 and SMA 7: Sodium 139, potassium 4.1, chloride 102, BUN 13, creatinine 1.1 , glucose 90, calcium 8.9. Cardiac enzymes were normal. Chest x-ray slightly improving. Microbiology culture: Scrotum cultures grew streptococcal pneumonia and gram- negative lorenzo sensitive to Levaquin, ceftriaxone and vancomycin. IgG levels were normal. ASSESSMENT AND PLAN: 1. Streptococcal pneumonia recurrence with underlying bronchiectasis. Normal IgG levels. Patient was given 12 days of IV antibiotics last time and we will discuss with Dr. Aguilar based on the sensitivity. We will continue the IV antibiotics. Maybe we will also give IV steroids. 2. Peripherally inserted central catheter line on the left side. 3. Reconcile home medicines. 4. Thrombocytopenia. Discontinue Lovenox. 5. Anemia due to chronic disease. Transfuse a unit of packed RBCs and check the Hemoccult stools. 6. Transfer orders were placed to [facility]. Increase the activity LEVEL OF DOCUMENTATION: Thirty-five minutes. cc: Juan May MD [facility]
[2017-02-17] MEDS ORDERED: NS 250 ML IV SCH (11:09)
[2017-02-17] MEDS ORDERED: BENADRYL PO PRN (12:02)
[2017-02-17] MEDS ORDERED: SODIUM CHLORIDE 0.9% INJ SCH (12:27)
[2017-02-17] MEDS ORDERED: PROTONIX IV SCH (13:00)
[2017-02-17] MEDS: ROBAXIN PO SCH ×3 (14:36→17:53)
[2017-02-17] MEDS: PROTONIX IV SCH (14:37)
--- NOTE | 2017-02-17 16:12 | PROGRESS NOTE ---
DATE: 02/17/2017 PRESENT ILLNESS: The patient has a right-sided pneumonia. His sputum culture came back today and it is growing Streptococcus pneumoniae and a Gram-negative lorenzo, which as of now has not yet been identified. MEDICATIONS: The patient is on a combination of vancomycin and Zosyn as well as Levaquin p.o. This is day 3 of treatment with the antibiotics. PHYSICAL EXAMINATION: Vital Signs: Temperature is 98.7 degrees, pulse 80, respirations 18, blood pressure 104/63. General: This is a fairly healthy-appearing, elderly male. He is in no acute distress. Lungs: Clear to auscultation. Cardiovascular: Regular heart rate. Abdomen: Soft and nontender. Thorax: Patient has an increased AP diameter of the chest. LABORATORY AND X-RAY: There is no new x-ray. The patient's laboratory studies show a CBC with a white count of 4960, hemoglobin 8.1, and platelet count 58,000. Creatinine is 1.1. GFR is greater than 60. The patient's IgA is 419. His IgG is 1267. ASSESSMENT AND PLAN: Patient has pneumonia. My plan is to continue Zosyn, but discontinue vancomycin and Levaquin, pending the results of the patient's sputum culture. COMORBIDITIES: Include being elderly, COPD, obstructive sleep apnea, and bronchiectasis. cc: MD Juan Guerra MD
[2017-02-17] MEDS: ZOSYN 4.5 GM/NS 4.5 GM/100 ML IVPB IV SCH (16:16)
[2017-02-17] MEDS: LEVAQUIN PO SCH (16:22)
[2017-02-17] MEDS: MIRAPEX PO SCH (16:34)
[2017-02-17] MEDS: DESYREL PO SCH (20:24)
[2017-02-17] MEDS: FLOMAX PO SCH (20:24)
[2017-02-18] MEDS: NORCO-7.5 PO PRN ×4 (01:33→23:29)
[2017-02-18] MEDS: ZOSYN 4.5 GM/NS 4.5 GM/100 ML IVPB IV SCH (01:34)
[2017-02-18] MEDS: ALBUTEROL NEB INH SCH ×6 (03:54→23:12)
[2017-02-18 05:47] LABS: MANUAL DIFF NEEDED? NO
[2017-02-18 06:09] LABS: BASO% 0.2 % (0.0-0.8); EOS# 0.12 X1000 (0.0-0.7); EOS% 2.5 % (0.0-10.0); HEMATOCRIT 27.8 % (42.0-52.0); HEMOGLOBIN 9.4 g/dL (14.0-18.0); LYMPH# 1.55 X1000 (1.2-3.4); LYMPH% 32.6 % (20.5-51.1); MCH 34.2 PG (27-31); MCHC 33.8 g/dL (33-37); MCV 101.1 FL (81-99); MONO# 0.27 X1000 (0.11-0.59); MONO% 5.7 % (1.7-9.3); MPV 13.4 FL (7.4-10.4); PLT 71 X1000 (130-400); RBC 2.75 XMIL (4.7-6.1)
[2017-02-18 06:18] LABS: POTASSIUM 3.7 mmol/L (3.5-5.1)
[2017-02-18] MEDS: ADVAIR 250/50 DISKUS INH SCH (08:09)
[2017-02-18] MEDS: SPIRIVA INH SCH (08:09)
--- NOTE | 2017-02-18 08:13 | PROGRESS NOTE ---
DATE: 02/18/2017 PRESENT ILLNESS: The patient has a pneumococcal and alcaligenes pneumonia. MEDICATIONS: The patient currently is receiving Zosyn and Levaquin. PHYSICAL EXAMINATION: Vital Signs: Temperature is 98.3 degrees, pulse 90, respirations 14, blood pressure 109/57. General: This is a fairly healthy-appearing, elderly male who is in no acute distress. Lungs: Clear to auscultation. Cardiovascular: Regular heart rate. Abdomen: Soft and nontender. ENT: No drainage from the nose or ears. LAB AND X-RAY: There is no new x-ray. The patient's sputum is growing combination of pneumococcus and alcaligenes. It is of note that the patient's alcaligenes, which was isolated in the sputum along with pneumococcus is resistant to every antibiotic tested except Septra. The patient's pneumococcus is susceptible to all the antibiotics tested except for penicillin and it is also susceptible to Septra. The patient's CBC shows a white count of 4750, hemoglobin 9.4, and platelet count 71,000, creatinine is 1.2, GFR is 60. ASSESSMENT AND PLAN: Patient has pneumonia. I have already switched him from Levaquin and Zosyn to Septra DS 1 p.o. every 12 hours. I have electronically sent in a prescription for a 2-week supply of Septra to the patient's pharmacy which is [facility]. I have also put 1 refill on it. My plan is to continue the patient's antibiotics and have him see me in the office in 2 weeks at which time I will examine the patient and repeat the patient's chest x-ray. If it is all cleared, we can stop the antibiotic but if it has not, then I will tell the patient to get his Septra refilled and continue on and I will see again the patient in approximately 2 weeks after the appointment which would be 4 weeks from today and go and do the same things including examining the patient and repeating the chest x-ray. The patient's immunoglobulin levels have been checked and they are normal. COMORBIDITIES: Includes being elderly, COPD, obstructive sleep apnea, and bronchiectasis. cc: MD Juan Guerra MD
[2017-02-18] MEDS: MIRALAX PO SCH (08:16)
[2017-02-18] MEDS: SEPTRA DS PO SCH ×2 (08:17→22:15)
[2017-02-18] MEDS: NEURONTIN PO SCH ×3 (08:18→17:18)
[2017-02-18] MEDS: MIRAPEX PO SCH (08:18)
[2017-02-18] MEDS: ROBAXIN PO SCH ×3 (08:18→17:18)
--- NOTE | 2017-02-18 08:59 | PROGRESS NOTE ---
DATE: 02/18/2017 SUBJECTIVE: The patient complains of sinus headache. Discussed with Dr. Aguilar about the plan of care. PICC line on the left side. Transfused 1 unit of packed RBC. REVIEW OF SYSTEMS: Denies any shortness of breath, chest pain. No GI symptoms or bleeding per rectum. PHYSICAL EXAMINATION: Vital Signs: On examination, he is afebrile. His vital signs are stable. Oxygen saturation is 92% on 3 liters. HEENT: Within normal limits. Neck: Supple. Chest: Crackles in the right base. Heart: Sounds are regular. Abdomen: Belly is soft, nontender. Good bowel sounds. No masses palpable. No peripheral edema, cyanosis, clubbing. Neurologic: No focal deficits. INVESTIGATIONS: CBC: White cell count 4.75, hematocrit 27, platelets 71,000. SMA-7 is stable. Microbiology cultures, sputum cultures show Streptococcus pneumoniae, penicillin sensitive; gram- negative rods, Alcaligenes xylosoxidans. Blood cultures were negative. ASSESSMENT AND PLAN: 1. Recurrent Streptococcus pneumoniae. Immunizations are up-to-date. Not immunocompromised, probably chronic bronchiectasis. Follow up on chest x-ray. Continue and change the antibiotics to intravenous Rocephin. 2. Gram-negative lorenzo, Alcaligenes, and this is resistant to everything except Bactrim. Start on oral Bactrim. 3. Anemia. Check the Hemoccult stools. Keep the hematocrit around 30 and transfuse 1 unit of packed red blood cells. 4. Thrombocytopenia due to sepsis, resolving. 5. In light of recurrent sepsis syndrome, I would prefer to give intravenous antibiotics for 2 weeks. We will arrange to continue home intravenous antibiotics with Rocephin and oral Bactrim. Discussed with the patient about the plan of care. LEVEL OF DOCUMENTATION: The level of documentation is 25 minutes. cc: MD JAYDEN Crabtree
[2017-02-18] MEDS ORDERED: VISINE OPH DROPS BOTH EYES PRN (09:19)
[2017-02-18] MEDS ORDERED: NS 500 ML ONE (09:31)
[2017-02-18] MEDS: NON-FORMULARY MED PO SCH (09:39)
[2017-02-18] MEDS: ROCEPHIN 1 GM/NS 1 GM/50 ML IVPB IV SCH (10:03)
[2017-02-18] MEDS ORDERED: HYDROXYZINE PO SCH (13:00)
[2017-02-18] MEDS: SODIUM CHLORIDE 0.9% INJ SCH (13:20)
[2017-02-18] MEDS: PROTONIX IV SCH (13:20)
[2017-02-18] MEDS ORDERED: NEOSPORIN OINTMENT PACKET TOP ONE (21:57)
[2017-02-18] MEDS: FLOMAX PO SCH (22:15)
[2017-02-18] MEDS: DESYREL PO SCH (22:15)
[2017-02-18] MEDS: HYDROXYZINE PO PRN (22:27)
[2017-02-19] MEDS: ALBUTEROL NEB INH SCH ×6 (04:13→22:57)
[2017-02-19] MEDS: TYLENOL PO PRN (05:50)
[2017-02-19] MEDS: ADVAIR 250/50 DISKUS INH SCH ×2 (07:35→16:30)
[2017-02-19] MEDS: SPIRIVA INH SCH ×2 (07:36→16:31)
[2017-02-19] MEDS: ROCEPHIN 1 GM/NS 1 GM/50 ML IVPB IV SCH (08:20)
[2017-02-19] MEDS: NEURONTIN PO SCH ×3 (08:27→17:03)
[2017-02-19] MEDS: MIRAPEX PO SCH (08:27)
[2017-02-19] MEDS: ROBAXIN PO SCH ×3 (08:27→17:04)
[2017-02-19] MEDS: MIRALAX PO SCH (08:28)
[2017-02-19] MEDS: NON-FORMULARY MED PO SCH (08:28)
[2017-02-19] MEDS: SEPTRA DS PO SCH ×2 (08:28→20:34)
[2017-02-19] MEDS: NORCO-7.5 PO PRN ×2 (09:25→18:14)
[2017-02-19] MEDS: HYDROXYZINE PO PRN ×2 (09:25→18:14)
[2017-02-19] MEDS ORDERED: FLONASE NAS ONE (12:00)
[2017-02-19] MEDS: PROTONIX IV SCH (12:44)
[2017-02-19] MEDS: SOLU-MEDROL IV SCH (12:44)
[2017-02-19] MEDS: SODIUM CHLORIDE 0.9% INJ SCH (12:44)
--- NOTE | 2017-02-19 17:23 | PROGRESS NOTE ---
DATE: 02/19/2017 SUBJECTIVE: The patient is anxious to go home. He had a PICC line on the left side. He complains of dryness, rhinorrhea and rash around the nose. Patient did receive 2 units of packed RBCs. REVIEW OF SYSTEMS: No shortness of breath. No chest pain other than the above symptoms. PHYSICAL EXAMINATION: Vital Signs: Stable. 4 L nasal cannula 92% saturation. HEENT: He has seborrheic dermatitis around the nasolabial folds. Neck: Supple. Crackles in the right base. Heart: Sounds are regular. Gastrointestinal: Belly is soft, nontender. Good bowel sounds. No peripheral edema. Neurologic: No obvious focal deficits. INVESTIGATIONS: None reported. ASSESSMENT AND PLAN: 1. Right bronchiectasis with Streptococcal pneumonia and gram-negative rods. Continue on IV Rocephin and Bactrim is 6. 2. Anemia. Follow up on stool occults pending. 2 units of packed RBCs. 3. Thrombocytopenia. Follow up on CBC in the morning. 4. Seborrheic dermatitis. [place] cream. 5. Allergic sinusitis. Flonase, Norel A and D tablets directed. 6. Bronchiectasis. will beneficial with IV low dose of steroids. DISPOSITION: Discharge on Tuesday. PLAN OF CARE: Repeat the labs in the morning. Chest x-ray and blood gas. LEVEL OF DOCUMENTATION: Twenty-five minutes. cc: Juan May MD MTDD
[2017-02-19] MEDS: DESYREL PO SCH (20:34)
[2017-02-19] MEDS: FLOMAX PO SCH (20:34)
[2017-02-19] MEDS ORDERED: FLONASE NAS SCH (21:00)
[2017-02-19] MEDS: VALISONE 0.1% CREAM TOP SCH (21:32)
[2017-02-20] MEDS: SOLU-MEDROL IV SCH ×2 (01:18→11:10)
[2017-02-20] MEDS: ALBUTEROL NEB INH SCH ×6 (03:29→23:17)
[2017-02-20 04:34] LABS: ALLEN TEST YES; BE 6.3 mmoll (-3.0-3.0); BLOOD TYPE ARTERIAL; DRAW SITE R RADIAL; METHB 0.8 % (0.0-1.5); O2(CT) 13.6 mL/dL (15.0-23.0); PCO2(98.6) 49 mmHg (35-45); PO2(98.6) 54 mmHg (60-100); SAMPLE BLOOD; SAO2 91.5 % (95.0-100.0); pH(98.6) 7.42 (7.35-7.45)
[2017-02-20 04:35] LABS: MODALITY ROOM AIR
[2017-02-20 04:45] LABS: BASO% 0.8 % (0.0-0.8); HEMATOCRIT 32.4 % (42.0-52.0); LYMPH# 0.67 X1000 (1.2-3.4); MANUAL DIFF NEEDED? YES; MCH 33.4 PG (27-31); MCV 98.5 FL (81-99); MONO# 0.01 X1000 (0.11-0.59); MONO% 0.4 % (1.7-9.3); NEUT% 72.8 % (42.2-75.2); PLT 78 X1000 (130-400); RBC 3.29 XMIL (4.7-6.1)
[2017-02-20 05:06] LABS: BANDS 3 % (0-1); LYMPHS 14 % (21-51); MONO 2 % (1-9)
[2017-02-20 05:08] LABS: ALLEN TEST YES; BE 6.2 mmoll (-3.0-3.0); BLOOD TYPE ARTERIAL; DRAW SITE R RADIAL; METHB 1.7 % (0.0-1.5); O2(CT) 14.8 mL/dL (15.0-23.0); PO2(98.6) 66 mmHg (60-100); SAMPLE BLOOD; SAO2 94.8 % (95.0-100.0); THB 11.5 g/dL (11.5-17.4)
[2017-02-20 05:09] LABS: MODALITY CANNULA; PCO2(98.6) 52 mmHg (35-45)
[2017-02-20 05:50] LABS: AGAP 12; BUN 13 mg/dL (8-22); CALCIUM 9.3 mg/dL (8.8-10.2); CHLORIDE 97 mmol/L (98-107); COSMO 277; POTASSIUM 4.1 mmol/L (3.5-5.1); SODIUM 137 mmol/L (136-145); TCO2 28 mmol/L (25-35)
[2017-02-20] MEDS: NORCO-7.5 PO PRN ×2 (06:36→14:27)
[2017-02-20] MEDS: SPIRIVA INH SCH (08:00)
[2017-02-20] MEDS: ADVAIR 250/50 DISKUS INH SCH (08:00)
[2017-02-20] MEDS: ROCEPHIN 1 GM/NS 1 GM/50 ML IVPB IV SCH (08:37)
[2017-02-20] MEDS: NEURONTIN PO SCH ×3 (08:48→15:59)
[2017-02-20] MEDS: ROBAXIN PO SCH ×3 (08:49→15:59)
[2017-02-20] MEDS: MIRAPEX PO SCH (08:49)
[2017-02-20] MEDS: NON-FORMULARY MED PO SCH (08:50)
[2017-02-20] MEDS: VALISONE 0.1% CREAM TOP SCH (08:51)
[2017-02-20] MEDS: SEPTRA DS PO SCH ×2 (08:51→20:59)
[2017-02-20] MEDS: HYDROXYZINE PO PRN ×2 (08:51→14:27)
[2017-02-20] MEDS: FLONASE NAS SCH (08:51)
[2017-02-20] MEDS: MIRALAX PO SCH (08:52)
[2017-02-20] MEDS ORDERED: WESTCORT TOP SCH (09:00)
--- NOTE | 2017-02-20 10:09 | PROGRESS NOTE ---
DATE: 02/20/2017 SUBJECTIVE: Complaints of insomnia status post 2 units of packed RBCs. Rash is better around the nose. Sinuses are better after adding steroids. REVIEW OF SYSTEMS: None reported. OBJECTIVE: Vital are stable, 157 pounds. HEENT examination: [place]ron[place]al labile fold has improved. Decreased crackles in the right base. Belly soft, nontender. No neurological deficits. DIAGNOSTIC DATA: White cell count 2.5, hematocrit 32, platelets 78. ABGs pH 7.40, PCO2 52, PO2 66, on 36%. SMA-7 is normal. Chest x-ray is pending. ASSESSMENT AND PLAN: 1. Seborrheic dermatitis improved. 2. Upper respiratory tract infection symptoms. Flonase. 3. Right lower lobe pneumonia with underlying bronchiectasis on Rocephin and Bactrim, intravenous steroids. 4. Thrombocytopenia stable. DISPOSITION: Will follow up on chest x-ray. He will be discharged in the morning. LEVEL OF DOCUMENTATION: 15 minutes. cc: Juan May MD
--- NOTE | 2017-02-20 12:30 | Diag Imaging Result Doc PS360 ---
EXAM: CHEST-2 VIEWS INDICATION: hypoxia TECHNIQUE: 2 views COMPARISON: 02/16/2017 FINDINGS: There has been interval placement of a left PICC line. The tip projects over the lower SVC just superior to the atriocaval junction in the expected position. Diffuse right lung infiltrate is stable to marginally improved. Calcified pleural plaques are again noted on the right. There is stable chronic pleural thickening on the right. There is no evidence of pneumothorax. The cardiac silhouette is stable. IMPRESSION: Interval placement of left PICC line as described and perhaps marginal improvement of the diffuse infiltrate on the right. Stable chest, otherwise. Electronically signed by Nikita Brar 02/20/2017 12:28 PM
[2017-02-20] MEDS: SODIUM CHLORIDE 0.9% INJ SCH (13:14)
[2017-02-20] MEDS: PROTONIX IV SCH (13:14)
[2017-02-20] MEDS: DESYREL PO SCH (20:59)
[2017-02-20] MEDS: FLOMAX PO SCH (20:59)
[2017-02-21] MEDS: SOLU-MEDROL IV SCH ×2 (01:05→12:01)
[2017-02-21] MEDS: ALBUTEROL NEB INH SCH ×3 (02:54→11:48)
[2017-02-21 08:04] LABS: BASO% 0.2 % (0.0-0.8); HEMATOCRIT 31.4 % (42.0-52.0); HEMOGLOBIN 10.4 g/dL (14.0-18.0); LYMPH# 0.86 X1000 (1.2-3.4); LYMPH% 18.9 % (20.5-51.1); MANUAL DIFF NEEDED? YES; MCH 32.8 PG (27-31); MCHC 33.1 g/dL (33-37); MCV 99.1 FL (81-99); MONO% 2.2 % (1.7-9.3); NEUT% 78.7 % (42.2-75.2); PLT 95 X1000 (130-400); RBC 3.17 XMIL (4.7-6.1)
[2017-02-21 08:15] LABS: AGAP 13; BUN 21 mg/dL (8-22); CHLORIDE 99 mmol/L (98-107); COSMO 286; SODIUM 141 mmol/L (136-145); TCO2 29 mmol/L (25-35)
[2017-02-21 08:59] LABS: BANDS 8 % (0-1); LYMPHS 8 % (21-51); MONO 4 % (1-9)
[2017-02-21 09:00] LABS: HYPOCHROM 2+; LARGE PLATELETS 1+
--- NOTE | 2017-02-21 09:11 | PROGRESS NOTE ---
DATE: 02/21/2017 PRESENT ILLNESS: The patient has pneumonia caused by Streptococcus pneumoniae and Alcaligenes. MEDICATIONS: The patient currently is receiving IV Rocephin and p.o. Septra. PHYSICAL EXAMINATION: Vital Signs: Temperature is 97.9 degrees, pulse 86, respirations 21, blood pressure 123/67. Patient weighs 157 pounds. General: This is a somewhat ill-appearing, elderly male. He is in no acute distress. Lungs: There were bilateral rhonchi. The patient coughed at times during the exam. Cardiovascular: Heart rate is regular. Abdomen: Soft and nontender. Neurologic: Patient is alert. He can move his extremities. LAB AND X-RAY: I did not see any new radiographic study over the weekend. ASSESSMENT AND PLAN: The plan is to send the patient home on Septra DS 1 p.o. every 12 hours. I electronically sent in a prescription last week for the patient's antibiotics. The prescription also had 1 refill on it. My plan is to see the patient back in the office in 2 weeks, at which time I will examine him and get a chest x-ray. If the chest x-ray still has infiltrates then I will continue with Septra p.o. Patient's immunoglobulin levels are normal. Comorbidities in this patient include being elderly, COPD, obstructive sleep apnea, and bronchiectasis. cc: MD Juan Guerra MD
[2017-02-21] MEDS: NEURONTIN PO SCH (09:20)
[2017-02-21] MEDS: MIRALAX PO SCH (09:20)
[2017-02-21] MEDS: ROCEPHIN 1 GM/NS 1 GM/50 ML IVPB IV SCH (09:20)
[2017-02-21] MEDS: MIRAPEX PO SCH (09:20)
[2017-02-21] MEDS: FLONASE NAS SCH (09:20)
[2017-02-21] MEDS: NORCO-7.5 PO PRN (09:21)
[2017-02-21] MEDS: ROBAXIN PO SCH (09:21)
[2017-02-21] MEDS: SEPTRA DS PO SCH (09:21)
[2017-02-21] MEDS: NON-FORMULARY MED PO SCH (09:21)
[2017-02-21] MEDS: HYDROXYZINE PO PRN (09:26)
[2017-02-21] MEDS: VALISONE 0.1% CREAM TOP SCH (09:27)
--- NOTE | 2017-02-21 09:57 | PROGRESS NOTE ---
DATE: 02/21/2017 ADDENDUM: The patient's CBC is back. The white count is 4540, hemoglobin 10.4, and platelet count 95,000. My plan will be to see the patient back in 2 weeks. cc: MD Juan Guerra MD
[2017-02-21] MEDS: ADVAIR 250/50 DISKUS INH SCH (11:48)
[2017-02-21] MEDS: SPIRIVA INH SCH (11:48)
[2017-02-21 11:52] VITALS: BP 142/72
--- NOTE | 2017-02-22 06:06 | DISCHARGE SUMMARY ---
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 SECONDARY DIAGNOSES: 1. Right lower lobe bronchiectasis. 2. Hypogonadism. 3. Chronic obstructive pulmonary disease, on oxygen. 4. Sleep apnea, on BiPAP machine. 5. Benign prostatic hypertrophy. 6. Acid reflux disease. 7. Chronic pain. 8. Anemia due to chronic disease. PROCEDURES: 1. PICC line on the left side. 2. Transfusion of 2 units of packed RBCs. CONSULTANTS: Dr. Teddy Aguilar. BRIEF HISTORY: Please see the H and P that was done by Dr. Rehan Garcia. In brief, he is a 71- year-old, white male with the above problems. He was recently discharged from the hospital on 12/28/2016. Has been doing well. Came in with altered mental status, anemia associated with hypoxemia, a fever of 101, and worsening of the pneumonia in the right side of the lung. He was admitted in the ICU. HOSPITAL COURSE: 1. Panculture workup was done as well as sputum cultures. Patient was started on broad-spectrum IV antibiotics with vancomycin, Zosyn, Levaquin. Subsequent workup, sputum cultures grew Streptococcus pneumonia which is penicillin sensitive, along with gram-negative rods, Alcaligenes xylosoxidans which is resistant to everything except the Bactrim. 2. PICC line was placed on the left side. 3. Anemia requiring 2 units of packed RBCs. Hemoccult stool negative. 4. Thrombocytopenia, probably from the sepsis and is slowly improving. 5. Patient complains of sinus headache requiring Norel AD. 6. Seborrheic dermatitis, [place] cream. Dr. Aguilar recommended 2 weeks of IV antibiotics with Rocephin once a day along with Bactrim for 2 weeks. He was moved out of the ICU in a stable condition. LABORATORIES: At the time of discharge, as follows. CBC: White cell count 4.8, hematocrit 31.4, platelet count 95,000. ABG: PH is 7.4, pCO2 52, PO2 66 on 3 L. SMA 7: Sodium 140, potassium 4, chloride 99, BUN 21, creatinine 0.9, glucose 129. IgG levels were normal. Immunizations were up to date. DISCHARGE INSTRUCTIONS: Outpatient IV antibiotics with continued IV Rocephin every day for 2 weeks, Bactrim Double Strength 1 tablet p.o. b.i.d. for 2 weeks, gabapentin 800 p.o. t.i.d., Flomax 0.4 daily, Prilosec 40 daily, trazodone 150 at bedtime, Dickens 7.5 q.8 as needed, Mirapex 1 mg daily, Robaxin 750 t.i.d., Spiriva 1 capsule inhalation daily, Advair 250/50 one puff b.i.d., ProAir 1 puff q.6 as needed, MiraLAX 17 g daily, Medrol Dosepak, Norel AD 1 tablet daily. Continue home oxygen and CPAP machine. Follow up in my office in 10 days. cc: MD Teddy Crabtree MD
== END 2017-02-21 12:40 | disposition home health service (06) ==
LOC: ED 14:28 → ICU 17:43 → 3S 02-17 12:30
PROVIDERS: ADMIT Internal Medicine; ATTEND Internal Medicine